=== PATIENT | male | born 1950 | race Caucasian/White ===

== ENCOUNTER 2020-07-27 06:58 | Emergency (ER) | payer MEDICARE, OTHER ==
--- NOTE | 2020-07-27 08:15 | ED ---
General Adult HPI - General Chief complaint: Fever Stated complaint: Fever Time Seen by Provider: 07/27/20 07:05 Source: RN notes reviewed, old records reviewed, Caregiver Mode of arrival: wheelchair Limitations: no limitations - History of Present Illness Initial comments: This is a 70-year-old male who had his baseline is unable to interact verbally o r any other manner. The whole history comes from the caregiver. Patient is brought in because he spiked a fever yesterday and his pulse ox went down to 88% today. Patient does have some exposure to people with COVID at the adult foster care facility that he lives. The patient had no vomiting patient had no diarrhea. According to the staff he has not been coughing. - Related Data Home Medications Medication Instructions Recorded Confirmed Aspirin EC [Ecotrin Low Dose] 81 mg PO DAILY@0700 07/27/20 07/27/20 Atorvastatin [Lipitor] 20 mg PO HS@2000 07/27/20 07/27/20 Cetirizine HCl [Zyrtec] 10 mg PO DAILY 07/27/20 07/27/20 LORazepam [Ativan] 1 mg PO BID PRN 07/27/20 07/27/20 LORazepam [Ativan] 1 mg PO TID@0700,1500,1900 07/27/20 07/27/20 Lactulose 10 gm PO DAILY@1500 07/27/20 07/27/20 Nasal Decongestant 2 spray EA NOSTRIL Q12H PRN 07/27/20 07/27/20 Secura Extra Cream 1 applic TOPICAL DAILY 07/27/20 07/27/20 diphenhydrAMINE [Benadryl] 25 mg PO HS PRN 07/27/20 07/27/20 Allergies Allergy/AdvReac Type Severity Reaction Status Date / Time No Known Allergies Allergy Verified 07/27/20 07:47 Review of Systems ROS Statement: Those systems with pertinent positive or pertinent negative responses have been documented in the HPI. ROS Other: All systems not noted in ROS Statement are negative. Past Medical History Additional Past Medical History / Comment(s): skin CA, mentally disabled History of Any Multi-Drug Resistant Organisms: None Reported Past Psychological History: No Psychological Hx Reported Smoking Status: Never smoker Past Alcohol Use History: None Reported Past Drug Use History: None Reported General Exam - General Exam Comments Initial Comments: GENERAL: Patient is well-developed and well-nourished. Patient is nontoxic and well- hydrated and is in no acute distress. ENT: Neck is soft and supple. No significant lymphadenopathy is noted. Oropharynx is clear. Moist mucous membranes. Neck has full range of motion without eliciting any pain. EYES: The sclera were anicteric and conjunctiva were pink and moist. Extraocular movements were intact and pupils were equal round and reactive to light. Eyelids were unremarkable. PULMONARY: Unlabored respirations. Good breath sounds bilaterally. Crackles bilateral bases more in the right than the left CARDIOVASCULAR: There is a regular rate and rhythm without any murmurs gallops or rubs. ABDOMEN: Soft and nontender with normal bowel sounds SKIN: Skin is clear with no lesions or rashes and otherwise unremarkable. NEUROLOGIC: Patient is alert and acting at his baseline according to staff MUSCULOSKELETAL: No lower extremity swelling or edema. No calf tenderness. LYMPHATICS: No significant lymphadenopathy is noted PSYCHIATRIC: Unable to assess secondary to his baseline condition Limitations: no limitations Course Vital Signs 07/27/20 07/27/20 07/27/20 07:05 08:00 08:30 Temperature 97.4 F L Pulse Rate 80 67 65 Respiratory 18 19 22 Rate Blood Pressure 111/67 120/74 117/72 O2 Sat by Pulse 94 L 92 L 92 L Oximetry 07/27/20 07/27/20 07/27/20 09:00 09:30 10:00 Temperature Pulse Rate 67 63 66 Respiratory 17 18 18 Rate Blood Pressure 119/77 125/75 118/74 O2 Sat by Pulse 92 L 93 L 95 Oximetry 07/27/20 10:41 Temperature 98.4 F Pulse Rate 66 Respiratory 18 Rate Blood Pressure 107/63 O2 Sat by Pulse 95 Oximetry Medical Decision Making - Medical Decision Making EKG shows normal sinus rhythm at 68 bpm ID interval is 170 QRS is 88 QT interval 382 QTC is 406. Patient's EKG shows no ST segment elevation or depression. Computed tomography scan of the chest shows no acute abnormality. Patient was 95% on room air while sleeping in bed. Patient was never in any respiratory distress. - Lab Data Result diagrams: 07/27/20 08:01 07/27/20 08:01 Lab Results 07/27/20 07/27/20 07/27/20 Range/Units 08:01 08:01 08:01 WBC 4.9 (3.8-10.6) k/uL RBC 4.35 (4.30-5.90) m/uL Hgb 13.7 (13.0-17.5) gm/dL Hct 39.9 (39.0-53.0) % MCV 91.8 (80.0-100.0) fL MCH 31.6 (25.0-35.0) pg MCHC 34.4 (31.0-37.0) g/dL RDW 12.0 (11.5-15.5) % Plt Count 119 L (150-450) k/uL MPV 9.5 Neutrophils % 75 % Lymphocytes % 10 % Monocytes % 9 % Eosinophils % 0 % Basophils % 3 % Neutrophils # 3.7 (1.3-7.7) k/uL Lymphocytes # 0.5 L (1.0-4.8) k/uL Monocytes # 0.4 (0-1.0) k/uL Eosinophils # 0.0 (0-0.7) k/uL Basophils # 0.2 (0-0.2) k/uL PT 10.9 (9.0-12.0) sec INR 1.1 (<1.2) APTT 26.0 (22.0-30.0) sec D-Dimer 1.55 H (<0.60) mg/L FEU Sodium 138 (137-145) mmol/L Potassium 4.2 (3.5-5.1) mmol/L Chloride 110 H (98-107) mmol/L Carbon Dioxide 22 (22-30) mmol/L Anion Gap 6 mmol/L BUN 15 (9-20) mg/dL Creatinine 0.69 (0.66-1.25) mg/dL Est GFR (CKD-EPI)AfAm >90 (>60 ml/min/1.73 sqM) Est GFR (CKD-EPI)NonAf >90 (>60 ml/min/1.73 sqM) Glucose 101 H (74-99) mg/dL Plasma Lactic Acid Kevon (0.7-2.0) mmol/L Calcium 8.8 (8.4-10.2) mg/dL Magnesium 2.0 (1.6-2.3) mg/dL Total Bilirubin 0.3 (0.2-1.3) mg/dL AST 44 (17-59) U/L ALT 30 (4-49) U/L Alkaline Phosphatase 70 (38-126) U/L Lactate Dehydrogenase 605 (313-618) U/L C-Reactive Protein <5.0 (<10.0) mg/L Total Protein 6.6 (6.3-8.2) g/dL Albumin 3.7 (3.5-5.0) g/dL Influenza Type A RNA (Not Detectd) Influenza Type B (PCR) (Not Detectd) 07/27/20 07/27/20 Range/Units 08:01 08:01 WBC (3.8-10.6) k/uL RBC (4.30-5.90) m/uL Hgb (13.0-17.5) gm/dL Hct (39.0-53.0) % MCV (80.0-100.0) fL MCH (25.0-35.0) pg MCHC (31.0-37.0) g/dL RDW (11.5-15.5) % Plt Count (150-450) k/uL MPV Neutrophils % % Lymphocytes % % Monocytes % % Eosinophils % % Basophils % % Neutrophils # (1.3-7.7) k/uL Lymphocytes # (1.0-4.8) k/uL Monocytes # (0-1.0) k/uL Eosinophils # (0-0.7) k/uL Basophils # (0-0.2) k/uL PT (9.0-12.0) sec INR (<1.2) APTT (22.0-30.0) sec D-Dimer (<0.60) mg/L FEU Sodium (137-145) mmol/L Potassium (3.5-5.1) mmol/L Chloride (98-107) mmol/L Carbon Dioxide (22-30) mmol/L Anion Gap mmol/L BUN (9-20) mg/dL Creatinine (0.66-1.25) mg/dL Est GFR (CKD-EPI)AfAm (>60 ml/min/1.73 sqM) Est GFR (CKD-EPI)NonAf (>60 ml/min/1.73 sqM) Glucose (74-99) mg/dL Plasma Lactic Acid Kevon 1.6 (0.7-2.0) mmol/L Calcium (8.4-10.2) mg/dL Magnesium (1.6-2.3) mg/dL Total Bilirubin (0.2-1.3) mg/dL AST (17-59) U/L ALT (4-49) U/L Alkaline Phosphatase (38-126) U/L Lactate Dehydrogenase (313-618) U/L C-Reactive Protein (<10.0) mg/L Total Protein (6.3-8.2) g/dL Albumin (3.5-5.0) g/dL Influenza Type A RNA Not Detected (Not Detectd) Influenza Type B (PCR) Not Detected (Not Detectd) Disposition Clinical Impression: Febrile illness, acute Disposition: HOME SELF-CARE Instructions (If sedation given, give patient instructions): Fever in Adults (ED) Is patient prescribed a controlled substance at d/c from ED?: No Referrals: Juan Vuong DO [Primary Care Provider] - 1-2 days Time of Disposition: 10:56
[2020-07-27 08:17] LABS: Basophils # (A) 0.2 k/uL (0-0.2); Basophils % (A) 3 %; Eosinophils % (A) 0 %; HCT 39.9 % (39.0-53.0); HGB 13.7 gm/dL (13.0-17.5); Lymphocytes # (A) 0.5 k/uL (1.0-4.8); Lymphocytes % (A) 10 %; MCH 31.6 pg (25.0-35.0); MCHC 34.4 g/dL (31.0-37.0); MCV 91.8 fL (80.0-100.0); Mean Platelet Volume 9.5; Monocytes # (A) 0.4 k/uL (0-1.0); Monocytes % (A) 9 %; Neutrophils # (A) 3.7 k/uL (1.3-7.7); Neutrophils % (A) 75 %; Platelet Count 119 k/uL (150-450); RBC 4.35 m/uL (4.30-5.90); WBC 4.9 k/uL (3.8-10.6)
--- NOTE | 2020-07-27 08:17 | XR ---
EXAMINATION TYPE: XR chest 1V portable DATE OF EXAM: 07/27/2020 Comparison: None Clinical History: 70-year-old male fever, Suspected COVID-19 pneumonia Findings: Low lung volumes and crowded vascular markings. Heart upper limits of normal in size. A subtle inters titial densities in the periphery of the lower lungs. No pleural effusion. Impression: Exam limited by low lung volumes and hypoventilatory changes. Subtle peripheral lower lung interstiti al densities could represent atelectasis or could reflect early atypical pneumonia. Follow-up recomme nded.
[2020-07-27 08:31] LABS: INR 1.1 (<1.2); Prothrombin Time 10.9 sec (9.0-12.0)
[2020-07-27 08:32] LABS: ALT 30 U/L (4-49); AST 44 U/L (17-59); African American GFR (CKD) >90 (>60 ml/min/1.73 sqM); Albumin 3.7 g/dL (3.5-5.0); Alkaline Phosphatase 70 U/L (38-126); Anion Gap 6 mmol/L; Blood Urea Nitrogen 15 mg/dL (9-20); C Reactive Protein <5.0 mg/L (<10.0); Calcium 8.8 mg/dL (8.4-10.2); Carbon Dioxide 22 mmol/L (22-30); Chloride 110 mmol/L (98-107); Glucose 101 mg/dL (74-99); LDH 605 U/L (313-618); Non-African American GFR(CKD) >90 (>60 ml/min/1.73 sqM); Potassium 4.2 mmol/L (3.5-5.1); Sodium 138 mmol/L (137-145); Total Bilirubin 0.3 mg/dL (0.2-1.3); Total Protein 6.6 g/dL (6.3-8.2)
[2020-07-27 08:44] LABS: D-Dimer 1.55 mg/L FEU (<0.60)
--- NOTE | 2020-07-27 10:14 | CT ---
EXAMINATION TYPE: CT chest angio for PE DATE OF EXAM: 07/27/2020 COMPARISON: HISTORY: Fever, COVID positiive CT DLP: 422.3 mGycm Automated exposure control for dose reduction was used. CONTRAST: CT Chest for pulmonary embolism performed with without and with IV Contrast, patient injected with 10 0 ml mL of Isovue 370. FINDINGS: There is motion, artifact on the exam LUNGS: The lungs are grossly clear, there is no concerning parenchymal mass or nodule identified. T here is no pleural effusion or pneumothorax seen. The tracheobronchial tree is patent. MEDIASTINUM: There is satisfactory enhancement of the pulmonary artery however there is limited opaci fication of segmental branches. There are no greater than 1 cm hilar or mediastinal lymph nodes. N o pericardial effusion is seen. AORTA: No additional significant abnormality is seen. OTHER: No additional significant abnormality is seen. IMPRESSION: Exam is somewhat limited to exclude peripheral pulmonary emboli. No central embolus is seen.
[2020-07-27 10:27] VITALS: PULSE 66
[2020-07-27 10:32] VITALS: RESP 18
[2020-07-27 10:42] VITALS: BP 107/63; TEMP 98.4
[2020-07-27 16:43] LABS: Ferritin 288.4 ng/mL (22.0-322.0)
== END 2020-07-27 11:09 | disposition home or self-care (01) ==
LOC: EEVIPCON 06:58 → EC 06:58
DX: R50.9 Fever, unspecified (principal); Z20.828 Contact with and (suspected) exposure to other viral communicable diseases; Z85.828 Personal history of other malignant neoplasm of skin; F79 Unspecified intellectual disabilities
CPT/HCPCS: 36415; 93005; 85379; 80053; 82728; 83605; 83615; 83735; 85025; 85610; 85730; 86140; 87040; 87502; 84145; 71045; 71275; 99284; 96365; U0003; J0696; Q9967

== ENCOUNTER 2020-07-28 12:38 | Observation (INO) | payer MEDICARE, OTHER ==
--- NOTE | 2020-07-28 14:30 | XR ---
EXAMINATION TYPE: XR chest 2V DATE OF EXAM: 07/28/2020 COMPARISON: 07/27/2020 HISTORY: Fever. Loss of appetite. TECHNIQUE: FINDINGS: There are some interstitial infiltrates and atelectasis at the lung bases. There is no hear t failure. Heart size is fairly normal. There is no pleural effusion. IMPRESSION: Bilateral basilar pulmonary interstitial infiltrates and atelectasis is the same or sligh tly worse than last exam yesterday.
[2020-07-28 15:05] LABS: ALT 32 U/L (4-49); AST 46 U/L (17-59); African American GFR (CKD) >90 (>60 ml/min/1.73 sqM); Alkaline Phosphatase 80 U/L (38-126); Anion Gap 6 mmol/L; Blood Urea Nitrogen 23 mg/dL (9-20); C Reactive Protein 5.8 mg/L (<10.0); Calcium 8.8 mg/dL (8.4-10.2); Carbon Dioxide 23 mmol/L (22-30); Chloride 111 mmol/L (98-107); Glucose 89 mg/dL (74-99); LDH 773 U/L (313-618); Magnesium 2.1 mg/dL (1.6-2.3); Non-African American GFR(CKD) >90 (>60 ml/min/1.73 sqM); Partial Thromboplastin Time 25.5 sec (22.0-30.0); Sodium 140 mmol/L (137-145); Total Bilirubin 0.4 mg/dL (0.2-1.3); Total Protein 7.1 g/dL (6.3-8.2)
[2020-07-28 15:07] LABS: HCT 42.7 % (39.0-53.0); HGB 14.3 gm/dL (13.0-17.5); MCH 30.8 pg (25.0-35.0); MCHC 33.4 g/dL (31.0-37.0); Mean Platelet Volume 9.6; Platelet Count 120 k/uL (150-450); RBC 4.63 m/uL (4.30-5.90); RDW 12.1 % (11.5-15.5); WBC 3.4 k/uL (3.8-10.6)
[2020-07-28 15:19] LABS: D-Dimer 1.32 mg/L FEU (<0.60)
[2020-07-28 15:26] LABS: Potassium 4.4 mmol/L (3.5-5.1)
[2020-07-28 15:41] LABS: Band Neutrophils % 1 %; Lymphocytes # (M) 1.77 k/uL (1.0-4.8); Neutrophils % (M) 41 %; Nucleated Red Blood Cells 0 /100 WBC (0-0); Total Cells Counted 100
--- NOTE | 2020-07-28 16:08 | ED ---
General Adult HPI - General Chief complaint: Recheck/Abnormal Lab/Rx Stated complaint: COVID+ Time Seen by Provider: 07/28/20 12:59 Source: patient Mode of arrival: ambulatory Limitations: no limitations - History of Present Illness Initial comments: 70-year-old male with history of developmental delay and nonverbal presenting to the emergency department with a chief complaint of covid-19 positive. Caregiver states the patient was here yesterday and had an in-depth laboratory workup and no significant findings. Patient continues to have a fever which they have been able to control with Tylenol. Caregiver states the patient has diarrhea and decreased appetite. She denies any cough at this moment. States the patient is otherwise having slight decrease in his appetite. She denies any vomiting. She states several of the president staying in a care home have tested positive. - Related Data Home Medications Medication Instructions Recorded Confirmed Aspirin EC [Ecotrin Low Dose] 81 mg PO DAILY@0700 07/27/20 07/27/20 Atorvastatin [Lipitor] 20 mg PO HS@2000 07/27/20 07/27/20 Cetirizine HCl [Zyrtec] 10 mg PO DAILY 07/27/20 07/27/20 LORazepam [Ativan] 1 mg PO BID PRN 07/27/20 07/27/20 LORazepam [Ativan] 1 mg PO TID@0700,1500,1900 07/27/20 07/27/20 Lactulose 10 gm PO DAILY@1500 07/27/20 07/27/20 Nasal Decongestant 2 spray EA NOSTRIL Q12H PRN 07/27/20 07/27/20 Secura Extra Cream 1 applic TOPICAL DAILY 07/27/20 07/27/20 diphenhydrAMINE [Benadryl] 25 mg PO HS PRN 07/27/20 07/27/20 Allergies Allergy/AdvReac Type Severity Reaction Status Date / Time No Known Allergies Allergy Verified 07/28/20 12:48 Review of Systems ROS Statement: Those systems with pertinent positive or pertinent negative responses have been documented in the HPI. ROS Other: All systems not noted in ROS Statement are negative. Past Medical History Additional Past Medical History / Comment(s): skin CA, mentally disabled History of Any Multi-Drug Resistant Organisms: None Reported Past Surgical History: No Surgical Hx Reported Past Psychological History: No Psychological Hx Reported Smoking Status: Never smoker Past Alcohol Use History: None Reported Past Drug Use History: None Reported General Exam Limitations: language barrier (Nonverbal) General appearance: alert, in no apparent distress Head exam: Present: atraumatic, normocephalic, normal inspection Eye exam: Present: normal appearance, PERRL ENT exam: Present: normal exam, normal oropharynx, mucous membranes moist, TM's normal bilaterally, normal external ear exam Neck exam: Present: normal inspection, full ROM. Absent: tenderness, meningismus, lymphadenopathy, thyromegaly Respiratory exam: Present: normal lung sounds bilaterally. Absent: respiratory distress, wheezes, rales, rhonchi, stridor, chest wall tenderness, accessory muscle use Cardiovascular Exam: Present: regular rate, normal rhythm, normal heart sounds. Absent: bradycardia, tachycardia, irregular rhythm, systolic murmur, diastolic murmur GI/Abdominal exam: Present: soft. Absent: distended, tenderness, guarding, rebound, rigid Extremities exam: Present: normal inspection, full ROM, normal capillary refill. Absent: tenderness, pedal edema, joint swelling Back exam: Present: normal inspection, full ROM. Absent: tenderness, CVA tenderness (R), CVA tenderness (L) Neurological exam: Present: alert Psychiatric exam: Present: normal affect, normal mood Skin exam: Present: warm, dry, intact, normal color Course Vital Signs 07/28/20 07/28/20 12:43 14:59 Temperature 97.0 F L Pulse Rate 72 Respiratory 20 28 H Rate Blood Pressure 133/84 O2 Sat by Pulse 95 Oximetry Medical Decision Making - Medical Decision Making 70-year-old male with a mental delay and nonverbal presents emergency Department with chief complaint of Covid positive. I spoke with the caregiver who was presents answering additional crutches. On physical examination, patient does have some dry mucous members. He otherwise does not appear to be in any respiratory distress. He is slightly tachypneic on reevaluation. Chest x-rays revealing bilateral infiltrates. Leukopenic at 3.9. Coags within normal pathak its. Elevated d-dimer at 1.25 likely secondary from Covid. CMP is unremarkable. Elevated LDH of 775. Patient is having decreased appetite and diarrhea. Patient will be admitted for further medical management. Case discussed with Dr. Cummings. Admitting physician is - Lab Data Result diagrams: 07/28/20 14:30 07/28/20 14:30 Lab Results 07/28/20 07/28/20 07/28/20 Range/Units 13:44 14:30 14:30 WBC 3.4 L (3.8-10.6) k/uL RBC 4.63 (4.30-5.90) m/uL Hgb 14.3 (13.0-17.5) gm/dL Hct 42.7 (39.0-53.0) % MCV 92.0 (80.0-100.0) fL MCH 30.8 (25.0-35.0) pg MCHC 33.4 (31.0-37.0) g/dL RDW 12.1 (11.5-15.5) % Plt Count 120 L (150-450) k/uL MPV 9.6 Neutrophils % (Manual) 41 % Band Neuts % (Manual) 1 % Lymphocytes % (Manual) 52 % Monocytes % (Manual) 6 % Neutrophils # (Manual) 1.40 (1.3-7.7) k/uL Lymphocytes # (Manual) 1.77 (1.0-4.8) k/uL Monocytes # (Manual) 0.20 (0-1.0) k/uL Nucleated RBCs 0 (0-0) /100 WBC Manual Slide Review Performed PT 10.0 (9.0-12.0) sec INR 1.0 (<1.2) APTT 25.5 (22.0-30.0) sec D-Dimer 1.32 H (<0.60) mg/L FEU Sodium (137-145) mmol/L Potassium (3.5-5.1) mmol/L Chloride (98-107) mmol/L Carbon Dioxide (22-30) mmol/L Anion Gap mmol/L BUN (9-20) mg/dL Creatinine (0.66-1.25) mg/dL Est GFR (CKD-EPI)AfAm (>60 ml/min/1.73 sqM) Est GFR (CKD-EPI)NonAf (>60 ml/min/1.73 sqM) Glucose (74-99) mg/dL Plasma Lactic Acid Kevon (0.7-2.0) mmol/L Calcium (8.4-10.2) mg/dL Magnesium (1.6-2.3) mg/dL Total Bilirubin (0.2-1.3) mg/dL AST (17-59) U/L ALT (4-49) U/L Alkaline Phosphatase (38-126) U/L Lactate Dehydrogenase (313-618) U/L C-Reactive Protein (<10.0) mg/L Total Protein (6.3-8.2) g/dL Albumin (3.5-5.0) g/dL Coronavirus (PCR) Detected A (Not Detectd) 07/28/20 07/28/20 Range/Units 14:30 14:30 WBC (3.8-10.6) k/uL RBC (4.30-5.90) m/uL Hgb (13.0-17.5) gm/dL Hct (39.0-53.0) % MCV (80.0-100.0) fL MCH (25.0-35.0) pg MCHC (31.0-37.0) g/dL RDW (11.5-15.5) % Plt Count (150-450) k/uL MPV Neutrophils % (Manual) % Band Neuts % (Manual) % Lymphocytes % (Manual) % Monocytes % (Manual) % Neutrophils # (Manual) (1.3-7.7) k/uL Lymphocytes # (Manual) (1.0-4.8) k/uL Monocytes # (Manual) (0-1.0) k/uL Nucleated RBCs (0-0) /100 WBC Manual Slide Review PT (9.0-12.0) sec INR (<1.2) APTT (22.0-30.0) sec D-Dimer (<0.60) mg/L FEU Sodium 140 (137-145) mmol/L Potassium 4.4 (3.5-5.1) mmol/L Chloride 111 H (98-107) mmol/L Carbon Dioxide 23 (22-30) mmol/L Anion Gap 6 mmol/L BUN 23 H (9-20) mg/dL Creatinine 0.74 (0.66-1.25) mg/dL Est GFR (CKD-EPI)AfAm >90 (>60 ml/min/1.73 sqM) Est GFR (CKD-EPI)NonAf >90 (>60 ml/min/1.73 sqM) Glucose 89 (74-99) mg/dL Plasma Lactic Acid Kevon 1.3 (0.7-2.0) mmol/L Calcium 8.8 (8.4-10.2) mg/dL Magnesium 2.1 (1.6-2.3) mg/dL Total Bilirubin 0.4 (0.2-1.3) mg/dL AST 46 (17-59) U/L ALT 32 (4-49) U/L Alkaline Phosphatase 80 (38-126) U/L Lactate Dehydrogenase 773 H (313-618) U/L C-Reactive Protein 5.8 (<10.0) mg/L Total Protein 7.1 (6.3-8.2) g/dL Albumin 4.0 (3.5-5.0) g/dL Coronavirus (PCR) (Not Detectd) Disposition Clinical Impression: Pneumonia due to COVID-19 virus, Decreased appetite, Diarrhea Disposition: ADMITTED IP TO THIS HOSP Condition: Fair Is patient prescribed a controlled substance at d/c from ED?: No Referrals: Juan Vuong DO [Primary Care Provider] - 1-2 days Time of Disposition: 17:43
[2020-07-28] MEDS ORDERED: ACETAMINOPHEN TAB 325 MG TAB PO PRN (16:53)
[2020-07-28] MEDS ORDERED: ONDANSETRON 4 MG/2 ML VIAL IVP PRN (16:53)
[2020-07-28] MEDS ORDERED: oxyCODONE-APAP 5-325MG 1 EACH TAB PO PRN (16:53)
[2020-07-28] MEDS ORDERED: LORazepam 2 MG/ML INJ IV PRN (16:53)
[2020-07-28] MEDS ORDERED: NALOXONE 0.4 MG/ML 1 ML VIAL IV PRN (16:53)
[2020-07-28] MEDS ORDERED: MORPHINE SULFATE 4 MG/ML SYRINGE IV PRN (16:53)
[2020-07-28] MEDS: SODIUM CHLORIDE 0.9% 1,000 ML IV SCH (17:58)
--- NOTE | 2020-07-28 18:32 | P.HPIM ---
History of Present Illness H&P Date: 07/28/20 Chief Complaint: diarrhea Patient is a 70-year-old male for history of developmental delay and nonverbal, skin cancer, and contractures who presented to the emergency department from his snf due to fevers, diarrhea, and hypoxia. He had known COVID-19 exposures at his snf. On arrival to the ER his vital signs within normal limits. He was slightly With a respiratory rate of 28. Laboratory analysis showed white blood cell count 3.4, platelets 120, d-dimer 1.32, chloride 111, BUN 23, LDH 773. Coronavirus rapid test was positive. Lactic acid was normal. He had been in the ER on 07/[address] of the chest which showed no central pulmonary embolism and grossly clear lungs. Chest x-ray 07/27 demonstrated by lateral bibasilar pulmonary interstitial infiltrates worsened from the day prior. Arrangements are made for admission for Covid 19 pneumonia and gastritis. He was started on dexamethasone and IV fluids. Patient seen and examined at bedside in the emergency department. 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 All information is gathered from extensive record review including emergency department visit 07/27/2020, and emergency rooms notes on 07/28 2020. I also spoke with the emergency room provider from 07/28 2020. Patient was seen in the ED on 07/27/2020 for low O2 sat at home and fevers. Came back in today for repeated fevers and diarrhea, with increased agitation. Review of Systems Unable to obtain review of systems as patient is nonverbal Past Medical History Additional Past Medical History / Comment(s): skin CA, mentally disabled History of Any Multi-Drug Resistant Organisms: None Reported Past Surgical History: No Surgical Hx Reported Past Psychological History: No Psychological Hx Reported Smoking Status: Never smoker Past Alcohol Use History: None Reported Past Drug Use History: None Reported Medications and Allergies Home Medications Medication Instructions Recorded Confirmed Type Aspirin EC [Ecotrin Low Dose] 81 mg PO DAILY@0700 07/27/20 07/28/20 History Atorvastatin [Lipitor] 20 mg PO HS@199907/27/20 07/28/20 History Cetirizine HCl [Zyrtec] 10 mg PO DAILY 07/27/20 07/28/20 History LORazepam [Ativan] 1 mg PO BID PRN 07/27/20 07/28/20 History LORazepam [Ativan] 1 mg PO TID@0700,1500,1900 07/27/20 07/28/20 History Lactulose 10 gm PO DAILY@1500 07/27/20 07/28/20 History Nasal Decongestant 2 spray EA NOSTRIL Q12H PRN 07/27/20 07/28/20 History Secura Extra Cream 1 applic TOPICAL DAILY 07/27/20 07/28/20 History diphenhydrAMINE [Benadryl] 25 mg PO HS PRN 07/27/20 07/28/20 History Allergies Allergy/AdvReac Type Severity Reaction Status Date / Time No Known Allergies Allergy Verified 07/28/20 17:45 Physical Exam Osteopathic Statement: *. No significant issues noted on an osteopathic structural exam other than those noted in the History and Physical/Consult. Vitals: Vital Signs Temp Pulse Resp BP Pulse Ox 07/28/20 14:59 28 H 07/28/20 12:43 97.0 F L 72 20 133/84 95 Intake and Output 07/28/20 07/28/20 07/28/20 06:59 14:59 22:59 Other: Weight 63.503 kg General: Ill-appearing, no acute distress, appears at stated age Derm: warm, dry Head: atraumatic, normocephalic, symmetric Eyes: EOMI, no lid lag, anicteric sclera, pupils equal round reactive to light ENT: Nose and ears atraumatic, no thrush, no pharyngeal erythema Neck: No thyromegaly, no cervical lymphadenopathy, trachea midline, supple Mouth: no lip lesion, mucus membranes dry Cardiovascular: S1S2 reg, no murmur, positive posterior tibial pulse bilateral, no edema, capillary refill less than 2 seconds Lungs: Decreased breath sounds bilateral, no ronchi, no rales, no wheeze, no accessory muscle use Abdominal: Distended and firm, NTTP , no appreciable organomegaly, Hypoactive bowel sounds Ext: + gross muscle atrophy, muscle strength muscle strength 5 out of 5 in all 4 extremities, no contractures+ B/l LE flexion contractures, Neuro: light touch intact all 4 extremities, No tremors Psych: Awake, non verbal, doesn't follow commands, appears anxious Results CBC & Chem 7: 07/28/20 14:30 07/28/20 14:30 Labs: Abnormal Lab Results - Last 24 Hours (Table) 07/28/20 07/28/20 07/28/20 Range/Units 13:44 14:30 14:30 WBC 3.4 L (3.8-10.6) k/uL Plt Count 120 L (150-450) k/uL D-Dimer 1.32 H (<0.60) mg/L FEU Chloride (98-107) mmol/L BUN (9-20) mg/dL Lactate Dehydrogenase (313-618) U/L Coronavirus (PCR) Detected A (Not Detectd) 07/28/20 Range/Units 14:30 WBC (3.8-10.6) k/uL Plt Count (150-450) k/uL D-Dimer (<0.60) mg/L FEU Chloride 111 H (98-107) mmol/L BUN 23 H (9-20) mg/dL Lactate Dehydrogenase 773 H (313-618) U/L Coronavirus (PCR) (Not Detectd) Assessment and Plan Assessment: COVID-19 Gastroenteritis - bowel appears dilated on CXR - CT abd and pelvis - IVF, clear liquids - zinc, vit C, VIt D, Pepecid, melatonin - Elevated d-dimer due to COVID and TA 07/27 negative - follow inflammatory markers Dehydration - IVF - recheck in AM Thrombocytopenia - likely reactive - follow CBC HLD - statin Cognitive impairment - Supportive care The patient is admitted with an anticipated greater than 2 midnight stay for evaluation of COVID-19 gastritis Surrogate decision-maker: Chelsea Sales legal guardian DVT prophylaxis: Lovenox Discussed with: nursing, ED physician, ED PA Anticipated discharge date: 2-[address]: A total of 65 minutes was spent on the care of this complex patient more than 50% of the time was spent in counseling and care coordination.
[2020-07-28] MEDS ORDERED: ATORVASTATIN 20 MG TAB PO SCH (20:00)
--- NOTE | 2020-07-28 20:14 | CT ---
EXAMINATION TYPE: CT abdomen pelvis wo con DATE OF EXAM: 07/28/2020 COMPARISON: None HISTORY: Bowel tympanic, megacolon, covid 19 + Abdominal pain possible megacolon CT DLP: 635.4 mGycm Automated exposure control for dose reduction was used. Images were obtained from the diaphragm to the floor the pelvis without contrast. There is some mild atelectasis at the right lung base. Heart size is normal. There is no pericardial effusion. Liver shows no focal defect. Bile ducts are not dilated. Spleen is intact. The stomach is intact. The re is no evidence of pancreatic mass. Gallbladder is contracted with small gallstones. There is no adrenal mass. Kidneys have normal size. There is no hydronephrosis. There is 2 cm cortica l cyst posterior right kidney. There is 4.5 cm cortical cyst lateral left kidney. There is 2 cm corti cachorro cyst lower pole right kidney. There is no evidence of solid renal mass. Ureters are not dilated. Bladder distends smoothly. There is no free fluid in the pelvis. There is mild gaseous distention of large and small bowel loops without disproportionate enlargement of any one loop. Fecal pattern is fa irly normal. Appendix is not definitely seen. There is no sign of thickened appendix. There is no smita dence of free air. There is no ascites. There is right hip nailing noted. The bony pelvis is intact. There is a second-degree L4-5 spondyloli sthesis with right side L4 spondylolysis. I see no acute fracture. IMPRESSION: Intestinal gas pattern suggestive of some mild ileus. I do not see evidence for mechanical bowel obst ruction. Mild linear infiltrate and atelectasis at the right lung base. L4-5 spondylolisthesis.
[2020-07-28] MEDS ORDERED: MELATONIN 5 MG TABLET PO SCH (21:00)
[2020-07-28] MEDS ORDERED: FAMOTIDINE 20 MG TAB PO SCH (21:00)
[2020-07-28] MEDS ORDERED: ASCORBIC ACID 500 MG TAB PO SCH (21:00)
[2020-07-28] MEDS ORDERED: ZINC SULFATE 220 MG CAP PO SCH (21:00)
[2020-07-28] MEDS ORDERED: CHOLECALCIFEROL 1,000 UNIT TAB PO SCH (21:00)
[2020-07-28] MEDS: LORazepam 1 MG TAB PO SCH (23:21)
[2020-07-29 06:04] LABS: Basophils % (A) 1 %; Eosinophils % (A) 1 %; HCT 40.4 % (39.0-53.0); HGB 13.4 gm/dL (13.0-17.5); Lymphocytes # (A) 1.2 k/uL (1.0-4.8); Lymphocytes % (A) 32 %; MCH 30.7 pg (25.0-35.0); MCHC 33.1 g/dL (31.0-37.0); MCV 92.8 fL (80.0-100.0); Mean Platelet Volume 10.1; Monocytes # (A) 0.2 k/uL (0-1.0); Monocytes % (A) 6 %; Neutrophils % (A) 55 %; Platelet Count 111 k/uL (150-450); RBC 4.35 m/uL (4.30-5.90); RDW 12.1 % (11.5-15.5); WBC 3.6 k/uL (3.8-10.6)
[2020-07-29] MEDS: SODIUM CHLORIDE 0.9% 1,000 ML IV SCH (07:54)
[2020-07-29] MEDS: ASPIRIN 81 MG PO SCH ×2 (07:55→08:01)
[2020-07-29] MEDS: LORazepam 1 MG TAB PO SCH (08:01)
[2020-07-29 08:04] VITALS: RESP 18
[2020-07-29] MEDS ORDERED: ENOXAPARIN 40 MG/0.4 ML SYRINGE SQ SCH (09:00)
[2020-07-29] MEDS ORDERED: LORATADINE 10 MG TAB PO SCH (09:00)
[2020-07-29 10:07] LABS: ALT 32 U/L (10-49); AST 34 U/L (14-35); African American GFR (CKD) 109.3 (60.0-200.0); Albumin/Globulin Ratio 1.73 (1.60-3.17); Alkaline Phosphatase 82 U/L (41-126); BUN/Creat Ratio 27.14 Ratio (12.00-20.00); C Reactive Protein <0.4 mg/dL (0.0-0.8); Calcium 8.3 mg/dL (8.7-10.3); Carbon Dioxide 22.3 mmol/L (21.6-31.8); Chloride 109 mmol/L (96-109); Globulin 2.2 g/dL (1.6-3.3); Glucose 87 mg/dL (70-110); Magnesium 1.9 mg/dL (1.5-2.4); Non-African American GFR(CKD) 94.3 (60.0-200.0); Potassium 4.1 mmol/L (3.5-5.5); Sodium 141 mmol/L (135-145); Total Bilirubin 0.4 mg/dL (0.3-1.2)
[2020-07-29 10:11] LABS: LDH 222 U/L (120-246)
[2020-07-29 10:20] LABS: Ferritin 422.2 ng/mL (22.0-322.0)
--- NOTE | 2020-07-29 11:32 | P.DS ---
Providers Date of admission: 07/28/20 16:37 Expected date of discharge: 07/29/20 Attending physician: Alexa Jimenez DO Primary care physician: Juan Vuong [facility] Course: Discharge Diagnosis: COVID-19 Viral gastroenteritis Ileus Dehydration Thrombocytopenia HLD Cognitive impairment Hospital Course: Patient is a 70-year-old male for history of developmental delay and nonverbal, skin cancer, and contractures who presented [facility] the emergency department [facility] due to fevers, diarrhea, and hypoxia. He had known COVID-19 exposures at his prison. On arrival to the ER his vital signs within normal limits. He was slightly With a respiratory rate of 28. Laboratory analysis showed white blood cell count 3.4, platelets 120, d-dimer 1.32, chloride 111, BUN 23, LDH 773. Coronavirus rapid test was positive. Lactic acid was normal. He had been in the ER on 07/[address] of the chest which showed no central pulmonary embolism and grossly clear lungs. Chest x-ray 07/27 demonstrated by lateral bibasilar pulmonary interstitial infiltrates worsened from the day prior. Arrangements are made for admission for Covid 19 pneumonia and ga stritis. He was started on dexamethasone and IV fluids. Dexamethasone was discontinued as the patient was not hypoxic at less than 94% on room air. Studies from the RECOVERY trial shows that people who are not hypoxic to worse with dexamethasone. This will be avoided. Was placed on vitamin C, vitamin D, and zinc. His diarrhea resolved. He was not cooperating with taking pills or doing on the hospital. The sister in group and felt as though he would do better at home. He was determined stable for discharge. He was noted to have an ileus on computed tomography scan. He will maintain on a full liquid diet for the next 3 days and then advance if he is having normal bowel movements. He'll have home health care established. He'll resume his prior medications. Patient seen and examined at bedside. Nonverbal, appears comfortable area Vital signs reviewed and stable. General: non toxic, no distress, appears at stated age Cardiovascular: S1S2 reg, no murmur, positive posterior tibial pulse bilateral, no edema, capillary refill less than 2 seconds Lungs: Decreased breath sounds bilateral, no ronchi, no rales, no wheeze, no accessory muscle use Abdominal: Distended and firm, NTTP , no appreciable organomegaly, Hypoactive bowel sounds Ext: + gross muscle atrophy, movign all 4 extremities independently, + B/l LE flexion contractures, Psych: Awake, non verbal, doesn't follow commands, appears anxious A total of 25 minutes of time were spent preparing this complex discharge summary . Patient Condition at Discharge: Fair Plan - Discharge Summary New Discharge Prescriptions: New Melatonin 10 mg PO HS #30 tablet Zinc Sulfate [Orazinc] 220 mg PO DAILY #15 cap Ascorbic Acid [Vitamin C] 1,000 mg PO DAILY 15 Days #15 tab Cholecalciferol [Vitamin D3 (25 Mcg = 1000 Iu)] 1,000 unit PO DAILY #15 tab Continue Cetirizine HCl [Zyrtec] 10 mg PO DAILY Nasal Decongestant 2 spray EA NOSTRIL Q12H PRN PRN Reason: Congestion Secura Extra Cream 1 applic TOPICAL DAILY LORazepam [Ativan] 1 mg PO BID PRN PRN Reason: Anxiety Aspirin EC [Ecotrin Low Dose] 81 mg PO DAILY@0700 diphenhydrAMINE [Benadryl] 25 mg PO HS PRN PRN Reason: Insomnia Atorvastatin [Lipitor] 20 mg PO HS@1999 Lactulose 10 gm PO DAILY@1500 LORazepam [Ativan] 1 mg PO TID@0700,1500,1900 Discharge Medication List Aspirin EC [Ecotrin Low Dose] 81 mg PO DAILY@0700 07/27/20 [History] Atorvastatin [Lipitor] 20 mg PO HS@199907/27/20 [History] Cetirizine HCl [Zyrtec] 10 mg PO DAILY 07/27/20 [History] LORazepam [Ativan] 1 mg PO BID PRN 07/27/20 [History] LORazepam [Ativan] 1 mg PO TID@0700,1500,1900 07/27/20 [History] Lactulose 10 gm PO DAILY@1500 07/27/20 [History] Nasal Decongestant 2 spray EA NOSTRIL Q12H PRN 07/27/20 [History] Secura Extra Cream 1 applic TOPICAL DAILY 07/27/20 [History] diphenhydrAMINE [Benadryl] 25 mg PO HS PRN 07/27/20 [History] Ascorbic Acid [Vitamin C] 1,000 mg PO DAILY 15 Days #15 tab 07/29/20 [Rx] Cholecalciferol [Vitamin D3 (25 Mcg = 1000 Iu)] 1,000 unit PO DAILY #15 tab 07/29/20 [Rx] Melatonin 10 mg PO HS #30 tablet 07/29/20 [Rx] Zinc Sulfate [Orazinc] 220 mg PO DAILY #15 cap 07/29/20 [Rx] Follow up Appointment(s)/Referral(s): Juan Vuong DO [Primary Care Provider] - 1-2 days Patient Instructions/Handouts: Full Liquid Diet (DC) Activity/Diet/Wound Care/Special Instructions: Activity: as tolerated Diet: full liquid for 3 days and then advance to regular if having bowel movements Discharge Disposition: HOME SELF-CARE
[2020-07-29 13:23] VITALS: BP 131/72; PULSE 93; TEMP 98.2
== END 2020-07-29 13:20 | disposition home or self-care (01) ==
LOC: EC 12:38 → 4SSUR 16:37
PROVIDERS: ADMIT Internal Medicine; ATTEND Internal Medicine
DX: U07.1 COVID-19 (principal); J18.9 Pneumonia, unspecified organism; A08.4 Viral intestinal infection, unspecified; R09.02 Hypoxemia; E86.0 Dehydration; D69.6 Thrombocytopenia, unspecified; K56.7 Ileus, unspecified; K29.70 Gastritis, unspecified, without bleeding; Z85.828 Personal history of other malignant neoplasm of skin; F79 Unspecified intellectual disabilities; R06.82 Tachypnea, not elsewhere classified; D72.819 Decreased white blood cell count, unspecified; R74.02 Elevation of levels of lactic acid dehydrogenase [LDH]; Z79.899 Other long term (current) drug therapy; Z79.82 Long term (current) use of aspirin; E78.5 Hyperlipidemia, unspecified
CPT/HCPCS: 99285; 36415; 85379 ×2; 80053 ×2; 82728 ×2; 83605; 83615 ×2; 83735 ×2; 85025 ×2; 85610; 85730; 86140 ×2; 87040; 87077; 87186; 84145; 87635; 71046; 74176; G0378 ×2

== ENCOUNTER 2021-04-22 00:26 | Inpatient (IN) | payer MEDICARE, OTHER ==
[2021-04-22] MEDS ORDERED: SODIUM CHLORIDE 0.9% 1,000 ML IV STA ×2 (00:53→02:42)
[2021-04-22] MEDS ORDERED: IBUPROFEN 600 MG TAB PO STA (00:53)
[2021-04-22] MEDS ORDERED: ACETAMINOPHEN TAB 500 MG TAB PO STA (00:53)
--- NOTE | 2021-04-22 00:54 | ED ---
Fever HPI - General Chief Complaint: Fever Stated Complaint: Fever Time Seen by Provider: 04/22/21 00:35 Source: patient, RN notes reviewed, old records reviewed, Caregiver Mode of arrival: ambulatory Limitations: no limitations - History of Present Illness MD Complaint: fever, weakness -: unknown Temperature Source: subjective Context: multiple patients with similar symptoms Associated Symptoms: denies other symptoms Treatments Prior to Arrival: none - Related Data Home Medications Medication Instructions Recorded Confirmed Aspirin EC [Ecotrin Low Dose] 81 mg PO DAILY@0700 07/27/20 07/28/20 Atorvastatin [Lipitor] 20 mg PO HS@199907/27/20 07/28/20 Cetirizine HCl [Zyrtec] 10 mg PO DAILY 07/27/20 07/28/20 LORazepam [Ativan] 1 mg PO BID PRN 07/27/20 07/28/20 LORazepam [Ativan] 1 mg PO TID@0700,1500,1900 07/27/20 07/28/20 Lactulose 10 gm PO DAILY@1500 07/27/20 07/28/20 Nasal Decongestant 2 spray EA NOSTRIL Q12H PRN 07/27/20 07/28/20 Secura Extra Cream 1 applic TOPICAL DAILY 07/27/20 07/28/20 diphenhydrAMINE [Benadryl] 25 mg PO HS PRN 07/27/20 07/28/20 Previous Rx's Medication Instructions Recorded Ascorbic Acid [Vitamin C] 1,000 mg PO DAILY 15 Days #15 tab 07/29/20 Cholecalciferol [Vitamin D3 (25 1,000 unit PO DAILY #15 tab 07/29/20 Mcg = 1000 Iu)] Melatonin 10 mg PO HS #30 tablet 07/29/20 Zinc Sulfate [Orazinc] 220 mg PO DAILY #15 cap 07/29/20 Allergies Allergy/AdvReac Type Severity Reaction Status Date / Time No Known Allergies Allergy Verified 04/22/21 00:39 Review of Systems ROS Statement: Those systems with pertinent positive or pertinent negative responses have been documented in the HPI. ROS Other: All systems not noted in ROS Statement are negative. Past Medical History Additional Past Medical History / Comment(s): skin CA, mentally disabled History of Any Multi-Drug Resistant Organisms: None Reported Past Surgical History: No Surgical Hx Reported Past Psychological History: No Psychological Hx Reported Smoking Status: Never smoker Past Alcohol Use History: None Reported Past Drug Use History: None Reported General Exam Limitations: physical limitation General appearance: alert, in no apparent distress Head exam: Present: atraumatic, normocephalic, normal inspection Eye exam: Present: normal appearance, PERRL, EOMI. Absent: scleral icterus, conjunctival injection, periorbital swelling ENT exam: Present: normal exam, mucous membranes moist Neck exam: Present: normal inspection. Absent: tenderness, meningismus, lymphadenopathy Respiratory exam: Present: normal lung sounds bilaterally. Absent: respiratory distress, wheezes, rales, rhonchi, stridor Cardiovascular Exam: Present: regular rate, normal rhythm, normal heart sounds. Absent: systolic murmur, diastolic murmur, rubs, gallop, clicks GI/Abdominal exam: Present: soft, normal bowel sounds. Absent: distended, tenderness, guarding, rebound, rigid Extremities exam: Present: normal inspection, full ROM, normal capillary refill. Absent: tenderness, pedal edema, joint swelling, calf tenderness Back exam: Present: normal inspection Neurological exam: Present: alert, oriented X3, CN II-XII intact Psychiatric exam: Present: normal affect, normal mood Skin exam: Present: warm, dry, intact, normal color. Absent: rash Course Vital Signs 04/22/21 04/22/21 00:31 01:50 Temperature 102.6 F H 99.5 F Pulse Rate 74 Respiratory 21 Rate Blood Pressure 156/80 O2 Sat by Pulse 94 L Oximetry - Reevaluation(s) Reevaluation #1: 04/22/21 00:44 Medical record is reviewed Reevaluation #2: 04/22/21 01:43 fever and UTI at 04/22/21 02:44 Staffing is informed of findings here in the emergency department patient's plan Medical Decision Making - Lab Data Result diagrams: 04/22/21 01:25 Lab Results 04/22/21 04/22/21 04/22/21 Range/Units 01:25 01:25 01:25 WBC 15.7 H (3.8-10.6) k/uL RBC 4.72 (4.30-5.90) m/uL Hgb 14.9 (13.0-17.5) gm/dL Hct 44.2 (39.0-53.0) % MCV 93.7 (80.0-100.0) fL MCH 31.5 (25.0-35.0) pg MCHC 33.6 (31.0-37.0) g/dL RDW 12.3 (11.5-15.5) % Plt Count 122 L (150-450) k/uL MPV 10.1 Neutrophils % 91 % Lymphocytes % 3 % Monocytes % 5 % Eosinophils % 0 % Basophils % 0 % Neutrophils # 14.3 H (1.3-7.7) k/uL Lymphocytes # 0.5 L (1.0-4.8) k/uL Monocytes # 0.7 (0-1.0) k/uL Eosinophils # 0.1 (0-0.7) k/uL Basophils # 0.0 (0-0.2) k/uL Troponin I <0.012 (0.000-0.034) ng/mL Urine Color Yellow Urine Appearance Cloudy (Clear) Urine pH 5.5 (5.0-8.0) Ur Specific [place] 1.024 (1.001-1.035) Urine Protein Trace H (Negative) Urine Glucose (UA) Negative (Negative) Urine Ketones 2+ H (Negative) Urine Blood Negative (Negative) Urine Nitrite Positive (Negative) Urine Bilirubin Negative (Negative) Urine Urobilinogen <2.0 (<2.0) mg/dL Ur Leukocyte Esterase Large H (Negative) Urine RBC 3 (0-5) /hpf Urine WBC 174 H (0-5) /hpf Urine Bacteria Rare H (None) /hpf Urine Mucus Few H (None) /hpf - EKG Data -: EKG Interpreted by Me (EKG is sinus tachycardia 101 CO 150 QRS 80 QTC 407) Critical Care Time Critical Care Time: Yes Total Critical Care Time: 31 Disposition Clinical Impression: Fever, UTI (urinary tract infection) Disposition: ADMITTED IP TO THIS HOSP Condition: Fair Is patient prescribed a controlled substance at d/c from ED?: No Referrals: Madan Mancuso MD [Primary Care Provider] - 1-2 days
[2021-04-22 01:49] LABS: Basophils % (A) 0 %; Eosinophils # (A) 0.1 k/uL (0-0.7); Eosinophils % (A) 0 %; HCT 44.2 % (39.0-53.0); HGB 14.9 gm/dL (13.0-17.5); Lymphocytes # (A) 0.5 k/uL (1.0-4.8); Lymphocytes % (A) 3 %; MCH 31.5 pg (25.0-35.0); MCHC 33.6 g/dL (31.0-37.0); MCV 93.7 fL (80.0-100.0); Mean Platelet Volume 10.1; Monocytes # (A) 0.7 k/uL (0-1.0); Monocytes % (A) 5 %; Neutrophils # (A) 14.3 k/uL (1.3-7.7); Neutrophils % (A) 91 %; Platelet Count 122 k/uL (150-450); RBC 4.72 m/uL (4.30-5.90); RDW 12.3 % (11.5-15.5); WBC 15.7 k/uL (3.8-10.6)
--- NOTE | 2021-04-22 02:00 | XR ---
EXAMINATION TYPE: XR chest 2V DATE OF EXAM: 04/22/2021 COMPARISON: 07/28/2020 HISTORY: Weakness TECHNIQUE: 2 views FINDINGS: There is some interstitial infiltrate and atelectasis at both lung bases. There is no heart failure. Heart size is normal. There are chest leads. The bony thorax is intact. IMPRESSION: Basilar pulmonary interstitial infiltrates and atelectasis that is improved compared to l ast exam.
[2021-04-22 02:12] LABS: Appearance,Urine Cloudy (Clear); Bacteria,Urine Rare /hpf; Bilirubin,Urine Negative (Negative); Blood,Urine Negative (Negative); Color,Urine Yellow; Glucose,Urine (UA) Negative (Negative); Ketones,Urine 2+ (Negative); Leukocyte Esterase,Urine Large (Negative); Mucus,Urine Few /hpf; Nitrite,Urine Positive (Negative); PH, Urine 5.5 (5.0-8.0); Protein,Urine Trace (Negative); RBC,Urine 3 /hpf (0-5); Specific Gravity,Urine 1.024 (1.001-1.035); Urobilinogen,Urine <2.0 mg/dL (<2.0); WBC,Urine 174 /hpf (0-5)
[2021-04-22] MEDS ORDERED: MORPHINE SULFATE 4 MG/ML SYRINGE IV PRN (02:41)
[2021-04-22] MEDS ORDERED: NALOXONE 0.4 MG/ML 1 ML VIAL IV PRN (02:41)
[2021-04-22] MEDS ORDERED: SODIUM CHLORIDE 0.9% 500 ML 500 ML IV STA (02:42)
[2021-04-22] MEDS: SODIUM CHLORIDE 0.9% 1,000 ML IV SCH ×3 (03:00→16:31)
[2021-04-22 03:08] LABS: Glucose 131 mg/dL (74-99); Total Protein 6.9 g/dL (6.3-8.2)
[2021-04-22 03:09] LABS: ALT 24 U/L (4-49); AST 31 U/L (17-59); African American GFR (CKD) >90 (>60 ml/min/1.73 sqM); Albumin 4.1 g/dL (3.5-5.0); Alkaline Phosphatase 102 U/L (38-126); Anion Gap 13 mmol/L; Blood Urea Nitrogen 18 mg/dL (9-20); Calcium 9.1 mg/dL (8.4-10.2); Carbon Dioxide 17 mmol/L (22-30); Chloride 109 mmol/L (98-107); Creatine Kinase 126 U/L (55-170); Lipase 136 U/L (23-300); Magnesium 1.7 mg/dL (1.6-2.3); Non-African American GFR(CKD) 89 (>60 ml/min/1.73 sqM); Phosphorus 1.9 mg/dL (2.5-4.5); Potassium 3.8 mmol/L (3.5-5.1); Sodium 139 mmol/L (137-145); Total Bilirubin 1.1 mg/dL (0.2-1.3)
[2021-04-22 03:29] LABS: Partial Thromboplastin Time 22.4 sec (22.0-30.0); Prothrombin Time 11.1 sec (9.0-12.0)
[2021-04-22] MEDS ORDERED: LORazepam 1 MG TAB PO PRN (11:07)
[2021-04-22] MEDS: [UNRECOGNIZED DRUG - OTHER] PO SCH ×3 (11:22→21:37)
[2021-04-22] MEDS: ASPIRIN 81 MG PO SCH (12:06)
[2021-04-22] MEDS ORDERED: MAG HYDROX/AL HYDROX/SIMETH 30 ML CUP PO PRN (13:39)
[2021-04-22] MEDS ORDERED: ONDANSETRON 4 MG/2 ML VIAL IVP PRN (13:39)
[2021-04-22] MEDS ORDERED: CALCIUM CARBONATE 500 MG CHEWABLE PO PRN (13:39)
[2021-04-22] MEDS ORDERED: MAGNESIUM HYDROXIDE 2,400 MG/10 ML CUP PO PRN (13:39)
--- NOTE | 2021-04-22 13:47 | P.HPIM ---
History of Present Illness H&P Date: 04/22/21 Chief Complaint: Fever History of presenting complaint: This is a 70-year-old patient who follows with visiting physicians. At the baseline patient is nonverbal, and can make hand gestures altered rapid arm. He can ablate with a gait belt and assistance. His diet is ground diet nectar thick liquids. He was noticed at the space of residence to have a fever and was brought in. Patient's found over UTI. Started on IV ceftriaxone. Patient sitting up out of bed. Awake. I'll answering questions. Appears to be comfortable. Patient nonverbal, not able to give any history. Review of systems, cannot be done as patient nonverbal Past medical history to include: Chronic dysphagia. Mental retardation. Hyperlipidemia, Social history: No history of smoking or alcohol Physical examination: VITAL SIGNS: 102.6, 74, 21, 156/80, 94% room air GENERAL: BMI 22.1, sitting on bed, awake, comfortable. EYES: Pupils equal. Conjunctiva normal. HEENT: External appearance of nose and ears normal, oral cavity grossly normal. NECK: JVD not raised; masses not palpable. HEART: First and second heart sounds are normal; no edema. LUNGS: Respiratory rate normal; clear to auscultation. ABDOMEN: Soft, nontender, liver spleen not palpable, no masses palpable. PSYCH: Cannot assess as patient nonverball. NEUROLOGICAL: Doesn't answer questions. Can move his limbs. Walks with some assistance.. LYMPHATICS: No lymph nodes palpable in the axilla and neck INVESTIGATIONS, reviewed in the clinical context: WBC 15.7 hemoglobin 14.9 platelets 122 potassium 3.8 bicarb 17 creatinine 0.81 lactic acid 2.7 and repeat 1.4 UA positive for ketones, leukoesterase, WBC, bacteria EKG tracing personally reviewed by me-poor baseline, sinus tachycardia Chest x-ray film personally reviewed by me-infiltrates in the lower half Assessment and plan: -Bilateral pneumonia, suspect gram-negative organism causing sepsis IV ceftriaxone -Acute UTI with cystitis IV ceftriaxone. -Sepsis from pneumonia IV fluids -Thrombocytopenia likely from sepsis Follow CBC -Hyperlipidemia Lipitor -Chronic mental retardation -Chronic gait dysfunction, patient needs some assistance in walking Fall precautions Patient started IV ceftriaxone. IV fluids. Home medications resumed. Repeat labs. Past Medical History Additional Past Medical History / Comment(s): skin CA, mentally disabled History of Any Multi-Drug Resistant Organisms: None Reported Past Surgical History: No Surgical Hx Reported Past Psychological History: No Psychological Hx Reported Smoking Status: Never smoker Past Alcohol Use History: None Reported Past Drug Use History: None Reported Medications and Allergies Home Medications Medication Instructions Recorded Confirmed Type Aspirin EC [Ecotrin Low Dose] 81 mg PO DAILY@0700 07/27/20 04/22/21 History Atorvastatin [Lipitor] 20 mg PO HS@199907/27/20 04/22/21 History Cetirizine HCl [Zyrtec] 10 mg PO DAILY@0700 07/27/20 04/22/21 History LORazepam [Ativan] 1 mg PO BID PRN 07/27/20 04/22/21 History LORazepam [Ativan] 1 mg PO TID@0700,1600,199907/27/20 04/22/21 History Lactulose 10 gm PO DAILY@1600 07/27/20 04/22/21 History Nasal Decongestant 2 spray EA NOSTRIL Q12H PRN 07/27/20 04/22/21 History Secura Extra Cream 1 applic TOPICAL DAILY PRN 07/27/20 04/22/21 History diphenhydrAMINE [Benadryl] 25 mg PO HS PRN 07/27/20 04/22/21 History Acyclovir 5% Oint [Zovirax Oint] 1 applic TOPICAL 5XD PRN 04/22/21 04/22/21 History Simply Thick 1 dose PO QID@07,12,16,20 04/22/21 04/22/21 History Allergies Allergy/AdvReac Type Severity Reaction Status Date / Time No Known Allergies Allergy Verified 04/22/21 09:14 Physical Exam Vitals: Vital Signs Temp Pulse Resp BP Pulse Ox 04/22/21 06:42 98.2 F 71 16 105/54 95 04/22/21 03:19 86 16 118/74 96 04/22/21 01:50 99.5 F 04/22/21 00:31 102.6 F H 74 21 156/80 94 L Intake and Output 04/21/21 04/22/21 04/22/21 22:59 06:59 14:59 Other: Weight 62.142 kg Results CBC & Chem 7: 04/22/21 01:25 04/22/21 02:28 Labs: Abnormal Lab Results - Last 24 Hours (Table) 04/22/21 04/22/21 04/22/21 Range/Units 01:25 01:25 02:28 WBC 15.7 H (3.8-10.6) k/uL Plt Count 122 L (150-450) k/uL Neutrophils # 14.3 H (1.3-7.7) k/uL Lymphocytes # 0.5 L (1.0-4.8) k/uL Chloride 109 H (98-107) mmol/L Carbon Dioxide 17 L (22-30) mmol/L Glucose 131 H (74-99) mg/dL Plasma Lactic Acid [place] (0.7-2.0) mmol/L Phosphorus 1.9 L (2.5-4.5) mg/dL Urine Protein Trace H (Negative) Urine Ketones 2+ H (Negative) Ur Leukocyte Esterase Large H (Negative) Urine WBC 174 H (0-5) /hpf Urine Bacteria Rare H (None) /hpf Urine Mucus Few H (None) /hpf 04/22/21 Range/Units 02:28 WBC (3.8-10.6) k/uL Plt Count (150-450) k/uL Neutrophils # (1.3-7.7) k/uL Lymphocytes # (1.0-4.8) k/uL Chloride (98-107) mmol/L Carbon Dioxide (22-30) mmol/L Glucose (74-99) mg/dL Plasma Lactic Acid [place] 2.7 H* (0.7-2.0) mmol/L Phosphorus (2.5-4.5) mg/dL Urine Protein (Negative) Urine Ketones (Negative) Ur Leukocyte Esterase (Negative) Urine WBC (0-5) /hpf Urine Bacteria (None) /hpf Urine Mucus (None) /hpf Microbiology - Last 24 Hours (Table) 04/22/21 01:25 Urine Culture - Preliminary Urine,Voided
[2021-04-22] MEDS: ENOXAPARIN 40 MG/0.4 ML SYRINGE SQ SCH (14:21)
[2021-04-22] MEDS: LACTULOSE 20 GM/30 ML CUP PO SCH (15:30)
[2021-04-22] MEDS: LORazepam 1 MG TAB PO SCH ×2 (15:31→21:32)
[2021-04-22] MEDS: ACETAMINOPHEN TAB 325 MG TAB PO PRN (21:32)
[2021-04-22] MEDS: ATORVASTATIN 20 MG TAB PO SCH (21:32)
[2021-04-22] MEDS: MELATONIN 3 MG TABLET PO PRN (21:32)
[2021-04-23] MEDS: SODIUM CHLORIDE 0.9% 1,000 ML IV SCH ×3 (04:26→16:08)
[2021-04-23 06:46] LABS: Basophils % (A) 0 %; Eosinophils # (A) 0.2 k/uL (0-0.7); Eosinophils % (A) 2 %; HCT 40.4 % (39.0-53.0); HGB 13.2 gm/dL (13.0-17.5); Lymphocytes # (A) 1.5 k/uL (1.0-4.8); Lymphocytes % (A) 11 %; MCH 31.1 pg (25.0-35.0); MCHC 32.6 g/dL (31.0-37.0); MCV 95.4 fL (80.0-100.0); Mean Platelet Volume 9.7; Monocytes # (A) 0.7 k/uL (0-1.0); Monocytes % (A) 5 %; Neutrophils # (A) 11.4 k/uL (1.3-7.7); Neutrophils % (A) 80 %; Platelet Count 155 k/uL (150-450); RBC 4.23 m/uL (4.30-5.90); RDW 12.3 % (11.5-15.5); WBC 14.2 k/uL (3.8-10.6)
[2021-04-23 07:18] LABS: ALT 28 U/L (4-49); AST 30 U/L (17-59); African American GFR (CKD) >90 (>60 ml/min/1.73 sqM); Albumin 2.8 g/dL (3.5-5.0); Alkaline Phosphatase 89 U/L (38-126); Anion Gap 7 mmol/L; Blood Urea Nitrogen 11 mg/dL (9-20); Calcium 8.2 mg/dL (8.4-10.2); Carbon Dioxide 19 mmol/L (22-30); Chloride 116 mmol/L (98-107); Globulin 2.7 g/dL; Glucose 88 mg/dL (74-99); Non-African American GFR(CKD) >90 (>60 ml/min/1.73 sqM); Sodium 142 mmol/L (137-145); Total Bilirubin 0.7 mg/dL (0.2-1.3); Total Protein 5.5 g/dL (6.3-8.2)
[2021-04-23] MEDS: [UNRECOGNIZED DRUG - OTHER] PO SCH ×4 (08:24→21:55)
[2021-04-23] MEDS: ASPIRIN 81 MG PO SCH (08:29)
[2021-04-23] MEDS: ENOXAPARIN 40 MG/0.4 ML SYRINGE SQ SCH (08:29)
[2021-04-23] MEDS: LORazepam 1 MG TAB PO SCH ×3 (08:29→21:54)
[2021-04-23 14:28] VITALS: BMI 22.1
[2021-04-23] MEDS: LACTULOSE 20 GM/30 ML CUP PO SCH (16:10)
--- NOTE | 2021-04-23 20:09 | P.PN ---
Progress Note - Text Progress Note Date: 04/23/21 Chief Complaint: Fever History of presenting complaint: This is a 70-year-old patient who follows with visiting physicians. At the baseline patient is nonverbal, and can make hand gestures altered rapid arm. He can ablate with a gait belt and assistance. His diet is ground diet nectar thick liquids. He was noticed at the space of residence to have a fever and was brought in. Patient's found over UTI. Started on IV ceftriaxone. Patient sitting up out of bed. Awake. I'll answering questions. Appears to be comfortable. Patient nonverbal, not able to give any history. Admitted with acute UTI with cystitis from Whitaker catheter, pneumonia. Started on IV ceftriaxone. April 23: Laying in bed. Nonverbal. Appears comfortable. Eating fairly well. On IV ceftriaxone. IV fluids. Review of systems, cannot be done as patient nonverbal Active Medications Acetaminophen (Acetaminophen Tab 325 Mg Tab) 650 mg PO Q6HR PRN PRN Reason: Mild Pain or Fever > 100.5 Last Admin: 04/22/21 21:32 Dose: 650 mg Documented by: Al Hydroxide/Mg Hydroxide (Mag Hydrox/Al Hydrox/Simeth 30 Ml Cup) 15 ml PO Q6HR PRN PRN Reason: Indigestion Aspirin (Aspirin 81 Mg) 81 mg PO DAILY@0700 [facility] Last Admin: 04/23/21 08:29 Dose: 81 mg Documented by: Atorvastatin Calcium (Atorvastatin 20 Mg Tab) 20 mg PO HS@2000 [facility] Last Admin: 04/22/21 21:32 Dose: 20 mg Documented by: Calcium Carbonate/Glycine (Calcium Carbonate 500 Mg Chewable) 1,000 mg PO Q4HR PRN PRN Reason: Dyspepsia Enoxaparin Sodium (Enoxaparin 40 Mg/0.4 Ml Syringe) 40 mg SQ DAILY [facility] Last Admin: 04/23/21 08:29 Dose: 40 mg Documented by: Ceftriaxone Sodium 1 gm/ (Sodium Chloride) 50 mls @ 100 mls/hr IVPB Q12H [facility] Last Admin: 04/23/21 16:08 Dose: 100 mls/hr Documented by: Sodium Chloride (Saline 0.9%) 1,000 mls @ 130 mls/hr IV .Q7H42M [facility] Last Admin: 04/23/21 16:08 Dose: 130 mls/hr Documented by: Lactulose (Lactulose 20 Gm/30 Ml Cup) 10 gm PO DAILY@1600 [facility] Last Admin: 04/23/21 16:10 Dose: 10 gm Documented by: Lorazepam (Lorazepam 1 Mg Tab) 1 mg PO TID@0700,1600,2000 [facility] Last Admin: 04/23/21 16:10 Dose: 1 mg Documented by: Lorazepam (Lorazepam 1 Mg Tab) 1 mg PO BID PRN PRN Reason: Anxiety Magnesium Hydroxide (Magnesium Hydroxide 2,400 Mg/10 Ml Cup) 2,400 mg PO DAILY PRN PRN Reason: Constipation Melatonin (Melatonin 3 Mg Tablet) 3 mg PO HS PRN PRN Reason: Insomnia Last Admin: 04/22/21 21:32 Dose: 3 mg Documented by: Naloxone HCl (Naloxone 0.4 Mg/Ml 1 Ml Vial) 0.2 mg IV Q2M PRN PRN Reason: Opioid Reversal Non-Formulary Medication (Simply Thick) 1 dose PO QID@07,12,16,20 [facility] Last Admin: 04/23/21 16:52 Dose: Not Given Documented by: Ondansetron HCl (Ondansetron 4 Mg/2 Ml Vial) 4 mg IVP Q8HR PRN PRN Reason: Nausea And Vomiting Past medical history to include: Chronic dysphagia. Mental retardation. Hyperlipidemia, Social history: No history of smoking or alcohol Physical examination: VITAL: 98.9, 70, 19, 124/69, 94% room air GENERAL: Laying in bed, awake, comfortable. EYES: Pupils equal. Conjunctiva normal. NECK: JVD not raised; masses not palpable. HEART: First and second heart sounds are normal; no edema. LUNGS: Respiratory rate normal; clear to auscultation. ABDOMEN: Soft, nontender, liver spleen not palpable, no masses palpable. PSYCH: Cannot assess as patient nonverball. NEUROLOGICAL: Doesn't answer questions. Can move his limbs. INVESTIGATIONS, reviewed in the clinical context: April 23: White count 4. 0.2 hemoglobin 13.2 potassium 4 creatinine 0.63 pro- calcitonin 0.3 to Urine culture: Gram-negative bacilli WBC 15.7 hemoglobin 14.9 platelets 122 potassium 3.8 bicarb 17 creatinine 0.81 lactic acid 2.7 and repeat 1.4 UA positive for ketones, leukoesterase, WBC, bacteria EKG tracing personally reviewed by me-poor baseline, sinus tachycardia Chest x-ray film personally reviewed by me-infiltrates in the lower half Assessment and plan: -Bilateral pneumonia, suspect gram-negative organism causing sepsis IV ceftriaxone -Acute UTI with cystitis, from gram-negative bacilli IV ceftriaxone. -Sepsis from pneumonia IV fluids -Thrombocytopenia likely from sepsis Follow CBC -Hyperlipidemia Lipitor -Chronic mental retardation -Chronic gait dysfunction, patient needs some assistance in walking Fall precautions Continue IV ceftriaxone. IV fluids. Home medications resumed. Repeat labs. Await culture results.
[2021-04-23] MEDS: ATORVASTATIN 20 MG TAB PO SCH (21:54)
[2021-04-23] MEDS: LACTATED RINGERS 1,000 ML IV SCH (21:55)
[2021-04-24] MEDS: ACETAMINOPHEN TAB 325 MG TAB PO PRN (00:41)
[2021-04-24] MEDS: MELATONIN 3 MG TABLET PO PRN (00:41)
[2021-04-24 06:52] LABS: Basophils % (A) 1 %; Eosinophils # (A) 0.2 k/uL (0-0.7); Eosinophils % (A) 3 %; HGB 13.4 gm/dL (13.0-17.5); Lymphocytes # (A) 0.9 k/uL (1.0-4.8); Lymphocytes % (A) 14 %; MCH 30.8 pg (25.0-35.0); MCHC 32.7 g/dL (31.0-37.0); MCV 94.2 fL (80.0-100.0); Mean Platelet Volume 9.7; Monocytes # (A) 0.4 k/uL (0-1.0); Monocytes % (A) 6 %; Neutrophils # (A) 4.8 k/uL (1.3-7.7); Neutrophils % (A) 75 %; Platelet Count 166 k/uL (150-450); RBC 4.35 m/uL (4.30-5.90); RDW 12.1 % (11.5-15.5); WBC 6.4 k/uL (3.8-10.6)
[2021-04-24] MEDS: ENOXAPARIN 40 MG/0.4 ML SYRINGE SQ SCH (07:59)
[2021-04-24] MEDS: ASPIRIN 81 MG PO SCH (07:59)
[2021-04-24] MEDS: LORazepam 1 MG TAB PO SCH ×3 (07:59→20:09)
[2021-04-24] MEDS: [UNRECOGNIZED DRUG - OTHER] PO SCH (07:59)
[2021-04-24] MEDS: LACTATED RINGERS 1,000 ML IV SCH ×2 (08:01→22:29)
[2021-04-24] MEDS: LACTULOSE 20 GM/30 ML CUP PO SCH (15:38)
[2021-04-24] MEDS: ATORVASTATIN 20 MG TAB PO SCH (20:09)
--- NOTE | 2021-04-24 20:34 | P.PN ---
Progress Note - Text Progress Note Date: 04/24/21 Chief Complaint: Fever History of presenting complaint: This is a 70-year-old patient who follows with visiting physicians. At the baseline patient is nonverbal, and can make hand gestures altered rapid arm. He can ablate with a gait belt and assistance. His diet is ground diet nectar thick liquids. He was noticed at the space of residence to have a fever and was brought in. Patient's found over UTI. Started on IV ceftriaxone. Patient sitting up out of bed. Awake. I'll answering questions. Appears to be comfortable. Patient nonverbal, not able to give any history. Admitted with acute UTI with cystitis from Whitaker catheter, pneumonia. Started on IV ceftriaxone. April 23: Laying in bed. Nonverbal. Appears comfortable. Eating fairly well. On IV ceftriaxone. IV fluids. April 24: Laying in bed, awake, comfortable. IV ceftriaxone. Urine cultures pending. Review of systems, cannot be done as patient nonverbal Active Medications Acetaminophen (Acetaminophen Tab 325 Mg Tab) 650 mg PO Q6HR PRN PRN Reason: Mild Pain or Fever > 100.5 Last Admin: 04/24/21 00:41 Dose: 650 mg Documented by: Al Hydroxide/Mg Hydroxide (Mag Hydrox/Al Hydrox/Simeth 30 Ml Cup) 15 ml PO Q6HR PRN PRN Reason: Indigestion Aspirin (Aspirin 81 Mg) 81 mg PO DAILY@0700 [facility] Last Admin: 04/24/21 07:59 Dose: 81 mg Documented by: Atorvastatin Calcium (Atorvastatin 20 Mg Tab) 20 mg PO HS@2000 [facility] Last Admin: 04/24/21 20:09 Dose: 20 mg Documented by: Calcium Carbonate/Glycine (Calcium Carbonate 500 Mg Chewable) 1,000 mg PO Q4HR PRN PRN Reason: Dyspepsia Enoxaparin Sodium (Enoxaparin 40 Mg/0.4 Ml Syringe) 40 mg SQ DAILY [facility] Last Admin: 04/24/21 07:59 Dose: 40 mg Documented by: Ceftriaxone Sodium 1 gm/ (Sodium Chloride) 50 mls @ 100 mls/hr IVPB Q12H [facility] Last Admin: 04/24/21 13:55 Dose: 100 mls/hr Documented by: Lactated Ringer's (Lactated Ringers) 1,000 mls @ 75 mls/hr IV .[id number] [facility] Last Admin: 04/24/21 08:01 Dose: 75 mls/hr Documented by: Lactulose (Lactulose 20 Gm/30 Ml Cup) 10 gm PO DAILY@1600 [facility] Last Admin: 04/24/21 15:38 Dose: 10 gm Documented by: Lorazepam (Lorazepam 1 Mg Tab) 1 mg PO TID@0700,1600,2000 [facility] Last Admin: 04/24/21 20:09 Dose: 1 mg Documented by: Lorazepam (Lorazepam 1 Mg Tab) 1 mg PO BID PRN PRN Reason: Anxiety Magnesium Hydroxide (Magnesium Hydroxide 2,400 Mg/10 Ml Cup) 2,400 mg PO DAILY PRN PRN Reason: Constipation Melatonin (Melatonin 3 Mg Tablet) 3 mg PO HS PRN PRN Reason: Insomnia Last Admin: 04/24/21 00:41 Dose: 3 mg Documented by: Naloxone HCl (Naloxone 0.4 Mg/Ml 1 Ml Vial) 0.2 mg IV Q2M PRN PRN Reason: Opioid Reversal Ondansetron HCl (Ondansetron 4 Mg/2 Ml Vial) 4 mg IVP Q8HR PRN PRN Reason: Nausea And Vomiting Past medical history to include: Chronic dysphagia. Mental retardation. Hyperlipidemia, Social history: No history of smoking or alcohol Physical examination: VITAL: 98.7, 78, 18, 139/86, 98% room air GENERAL: Laying in bed, awake, comfortable. EYES: Pupils equal. Conjunctiva normal. NECK: JVD not raised; masses not palpable. HEART: First and second heart sounds are normal; no edema. LUNGS: Respiratory rate normal; clear to auscultation. ABDOMEN: Soft, nontender, liver spleen not palpable, no masses palpable. PSYCH: Cannot assess as patient nonverball. NEUROLOGICAL: Doesn't answer questions. Can move his limbs. INVESTIGATIONS, reviewed in the clinical context: April 24: WBC 6.4 hemoglobin 13.4 platelets 166. Pro-calcitonin 0.23 April 23: White count 4. 0.2 hemoglobin 13.2 potassium 4 creatinine 0.63 pro- calcitonin 0.3 to Urine culture: Gram-negative bacilli WBC 15.7 hemoglobin 14.9 platelets 122 potassium 3.8 bicarb 17 creatinine 0.81 lactic acid 2.7 and repeat 1.4 UA positive for ketones, leukoesterase, WBC, bacteria EKG tracing personally reviewed by me-poor baseline, sinus tachycardia Chest x-ray film personally reviewed by me-infiltrates in the lower half Assessment and plan: -Bilateral pneumonia, suspect gram-negative organism causing sepsis IV ceftriaxone -Acute UTI with cystitis, from gram-negative bacilli IV ceftriaxone. -Sepsis from pneumonia IV fluids -Thrombocytopenia likely from sepsis Follow CBC -Hyperlipidemia Lipitor -Chronic mental retardation -Chronic gait dysfunction, patient needs some assistance in walking Fall precautions Continue IV ceftriaxone. IV fluids. Home medications resumed. Hopefully discharge tomorrow.
[2021-04-25] MEDS: ASPIRIN 81 MG PO SCH (07:34)
[2021-04-25] MEDS: ENOXAPARIN 40 MG/0.4 ML SYRINGE SQ SCH (07:34)
[2021-04-25] MEDS: LORazepam 1 MG TAB PO SCH ×2 (07:34→15:09)
[2021-04-25] MEDS: LACTATED RINGERS 1,000 ML IV SCH (07:35)
--- NOTE | 2021-04-25 12:30 | P.DS ---
Providers Date of admission: 04/22/21 02:43 Expected date of discharge: 04/25/21 Attending physician: Salo Lockwood Primary care physician: Bryce Hospital Course: Chief Complaint: Fever History of presenting complaint: This is a 70-year-old patient who follows with visiting physicians. At the baseline patient is nonverbal, and can make hand gestures altered rapid arm. He can ablate with a gait belt and assistance. His diet is ground diet nectar thick liquids. He was noticed at the space of residence to have a fever and was brought in. Patient's found over UTI. Started on IV ceftriaxone. Patient sitting up out of bed. Awake. I'll answering questions. Appears to be comfortable. Patient nonverbal, not able to give any history. Admitted with acute UTI with cystitis from Whitaker catheter, pneumonia. Started on IV ceftriaxone. April 23: Laying in bed. Nonverbal. Appears comfortable. Eating fairly well. On IV ceftriaxone. IV fluids. April 24: Laying in bed, awake, comfortable. IV ceftriaxone. Urine cultures pending. April 25: Comfortable. Oral intake fair. Urine culture E. coli. Past medical history to include: Chronic dysphagia. Mental retardation. Hyperlipidemia, Social history: No history of smoking or alcohol Physical examination: VITAL: 98.6, 72, 18, 126/72, 93% room air GENERAL: Laying in bed, awake, comfortable. EYES: Pupils equal. Conjunctiva normal. NECK: JVD not raised; masses not palpable. HEART: First and second heart sounds are normal; no edema. LUNGS: Respiratory rate normal; clear to auscultation. ABDOMEN: Soft, nontender, liver spleen not palpable, no masses palpable. PSYCH: Cannot assess as patient nonverball. NEUROLOGICAL: Doesn't answer questions. Can move his limbs. INVESTIGATIONS, reviewed in the clinical context: April 24: WBC 6.4 hemoglobin 13.4 platelets 166. Pro-calcitonin 0.23 April 23: White count 4. 0.2 hemoglobin 13.2 potassium 4 creatinine 0.63 pro- calcitonin 0.3 to Urine culture: E. coli WBC 15.7 hemoglobin 14.9 platelets 122 potassium 3.8 bicarb 17 creatinine 0.81 lactic acid 2.7 and repeat 1.4 UA positive for ketones, leukoesterase, WBC, bacteria EKG tracing personally reviewed by manisha baseline, sinus tachycardia Chest x-ray film personally reviewed by me-infiltrates in the lower half Assessment and plan: -Bilateral pneumonia, suspect gram-negative organism causing sepsis IV ceftriaxone. Changed to Ceftin for 3 more days -Acute UTI with cystitis, from E. coli IV ceftriaxone. Ceftin for 3 more days -Sepsis from pneumonia: Improved IV fluids -Thrombocytopenia likely from sepsis: Improved Follow CBC -Hyperlipidemia Lipitor -Chronic mental retardation -Chronic gait dysfunction, patient needs some assistance in walking Fall precautions Disposition: [facility] Plan - Discharge Summary Discharge Rx Participant: Yes New Discharge Prescriptions: New Cefuroxime Axetil [Ceftin] 500 mg PO BID #6 tab Melatonin 3 mg PO HS PRN #30 tablet PRN Reason: Insomnia Continue Nasal Decongestant 2 spray EA NOSTRIL Q12H PRN PRN Reason: Congestion Secura Extra Cream 1 applic TOPICAL DAILY PRN PRN Reason: buttocks LORazepam [Ativan] 1 mg PO BID PRN PRN Reason: Anxiety Aspirin EC [Ecotrin Low Dose] 81 mg PO DAILY@0700 Atorvastatin [Lipitor] 20 mg PO HS@1999 Lactulose 10 gm PO DAILY@1600 LORazepam [Ativan] 1 mg PO TID@0700,1599,1999 Simply Thick 1 dose PO QID@07,12,16,20 Acyclovir 5% Oint [Zovirax Oint] 1 applic TOPICAL 5XD PRN PRN Reason: Cold Sores Discontinued Cetirizine HCl [Zyrtec] 10 mg PO DAILY@0700 diphenhydrAMINE [Benadryl] 25 mg PO HS PRN PRN Reason: Insomnia Discharge Medication List Aspirin EC [Ecotrin Low Dose] 81 mg PO DAILY@0700 07/27/20 [History] Atorvastatin [Lipitor] 20 mg PO HS@199907/27/20 [History] LORazepam [Ativan] 1 mg PO BID PRN 07/27/20 [History] LORazepam [Ativan] 1 mg PO TID@0700,1600,199907/27/20 [History] Lactulose 10 gm PO DAILY@1600 07/27/20 [History] Nasal Decongestant 2 spray EA NOSTRIL Q12H PRN 07/27/20 [History] Secura Extra Cream 1 applic TOPICAL DAILY PRN 07/27/20 [History] Acyclovir 5% Oint [Zovirax Oint] 1 applic TOPICAL 5XD PRN 04/22/21 [History] Simply Thick 1 dose PO QID@07,12,16,20 04/22/21 [History] Cefuroxime Axetil [Ceftin] 500 mg PO BID #6 tab 04/25/21 [Rx] Melatonin 3 mg PO HS PRN #30 tablet 04/25/21 [Rx] Follow up Appointment(s)/Referral(s): Madan Mancuso MD [Primary Care Provider] - 1-2 days Patient Instructions/Handouts: Urinary Tract Infection in Men (DC) Activity/Diet/Wound Care/Special Instructions: *Discharging RN - call report to [facility] [phone] - they will come get patient at discharge.
[2021-04-25 13:50] VITALS: BP 134/78; PULSE 68; RESP 16; TEMP 98.2
[2021-04-25] MEDS: LACTULOSE 20 GM/30 ML CUP PO SCH (15:09)
== END 2021-04-25 16:22 | disposition home health service (06) | DRG 871 ==
LOC: EC 00:26 → SUPCPDRO 00:26 → 4SSUR 02:43
PROVIDERS: ADMIT Hospitalist; ATTEND Hospitalist
DX: A41.9 Sepsis, unspecified organism (principal); J18.9 Pneumonia, unspecified organism; E78.5 Hyperlipidemia, unspecified; F41.9 Anxiety disorder, unspecified; F79 Unspecified intellectual disabilities; G47.00 Insomnia, unspecified; K59.00 Constipation, unspecified; N30.90 Cystitis, unspecified without hematuria; Z79.82 Long term (current) use of aspirin; Z79.899 Other long term (current) drug therapy; D69.59 Other secondary thrombocytopenia; B96.20 Unspecified Escherichia coli [E. coli] as the cause of diseases classified elsewhere
CPT/HCPCS: 36415; 71046; 80053; 81001; 82550; 83605; 83690; 83735; 83880; 84100; 84145; 84484; 85025; 85610; 85730; 87040; 87077; 87086; 87186; 93005; 96361; 96372; 99285

== ENCOUNTER 2021-04-27 13:20 | Emergency (ER) | payer MEDICARE, OTHER ==
[2021-04-27 13:26] VITALS: BP 131/78; PULSE 89; RESP 18; TEMP 97.6
--- NOTE | 2021-04-27 14:43 | ED ---
General Adult HPI - General Chief complaint: Urogenital Stated complaint: trouble urinating Time Seen by Provider: 04/27/21 13:28 Source: RN notes reviewed, Caregiver Mode of arrival: wheelchair Limitations: language barrier, altered mental status, physical limitation - History of Present Illness Initial comments: Patient is a pleasant 70-year-old male presenting to the emergency Department with decreased urination. Patient does have recent urinary tract infection of which patient was hospitalized for 3 days. Patient is nonverbal and unable to express any complaints. History is taken from event host. I did speak also on the phone with the second event host states patient has had little urinary output since just last night. They're also concern for some swelling and redness. - Related Data Home Medications Medication Instructions Recorded Confirmed Aspirin EC [Ecotrin Low Dose] 81 mg PO DAILY@0700 07/27/20 04/22/21 Atorvastatin [Lipitor] 20 mg PO HS@199907/27/20 04/22/21 LORazepam [Ativan] 1 mg PO BID PRN 07/27/20 04/22/21 LORazepam [Ativan] 1 mg PO TID@0700,1600,199907/27/20 04/22/21 Lactulose 10 gm PO DAILY@1600 07/27/20 04/22/21 Nasal Decongestant 2 spray EA NOSTRIL Q12H PRN 07/27/20 04/22/21 Secura Extra Cream 1 applic TOPICAL DAILY PRN 07/27/20 04/22/21 Acyclovir 5% Oint [Zovirax Oint] 1 applic TOPICAL 5XD PRN 04/22/21 04/22/21 Simply Thick 1 dose PO QID@07,12,16,20 04/22/21 04/22/21 Previous Rx's Medication Instructions Recorded Cefuroxime Axetil [Ceftin] 500 mg PO BID #6 tab 04/25/21 Melatonin 3 mg PO HS PRN #30 tablet 04/25/21 Neomycin/Bacitracin/Polymyxinb 1 applic TOPICAL BID #30 gm 04/27/21 [Neosporin Ointment] Allergies Allergy/AdvReac Type Severity Reaction Status Date / Time No Known Allergies Allergy Verified 04/27/21 13:26 Review of Systems ROS Statement: Those systems with pertinent positive or pertinent negative responses have been documented in the HPI. Limitations: ROS unobtainable due to patients medical condition Past Medical History Additional Past Medical History / Comment(s): skin CA, mentally disabled History of Any Multi-Drug Resistant Organisms: None Reported Past Surgical History: No Surgical Hx Reported Past Anesthesia/Blood Transfusion Reactions: No Reported Reaction Past Psychological History: No Psychological Hx Reported Smoking Status: Never smoker Past Alcohol Use History: None Reported Past Drug Use History: None Reported General Exam Limitations: language barrier, altered mental status, physical limitation General appearance: alert, in no apparent distress Head exam: Present: atraumatic Eye exam: Present: normal appearance Respiratory exam: Present: normal lung sounds bilaterally Cardiovascular Exam: Present: regular rate, normal rhythm GI/Abdominal exam: Present: soft. Absent: distended, tenderness, guarding, rebound, rigid exam: Present: other (Minimal skin excoriation/erythema, nontender.). Absent: testicular tenderness, scrotal swelling Neurological exam: Present: alert Skin exam: Present: intact Course Vital Signs 04/27/21 13:22 Temperature 97.6 F Pulse Rate 89 Respiratory 18 Rate Blood Pressure 131/78 O2 Sat by Pulse 98 Oximetry Medical Decision Making - Medical Decision Making Patient has 300 mL of urine out with Whitaker catheter. Exam is not concerning for acute infection. Patient will be provided prescription for antibiotic cream and event host is advised to keep close check on this area and return if swelling or increased redness or fever. Also informed to watch for patient potentially trying to remove catheter. Disposition Clinical Impression: Urinary retention Disposition: HOME SELF-CARE Condition: Stable Instructions (If sedation given, give patient instructions): Urinary Retention in Men (ED) Additional Instructions: Apply antibiotic ointment 1-2 times daily to penile area for the next several days. Prescription has been sent to pharmacy. This is available [id number] as well. Please check this area frequently. Return for increased redness, swelling, fevers, difficulty with urination, worsening symptoms or any other concerns. Please ensure patient does not pull on Whitaker catheter. Prescriptions: Neomycin/Bacitracin/Polymyxinb [Neosporin Ointment] 1 applic TOPICAL BID #30 gm Is patient prescribed a controlled substance at d/c from ED?: No Referrals: Crow Gardner MD [Primary Care Provider] - 1-2 days Time of Disposition: 14:42
== END 2021-04-27 15:00 | disposition home or self-care (01) ==
LOC: EC 13:20
DX: R33.9 Retention of urine, unspecified (principal)
CPT/HCPCS: 51702; 51798; 99283

== ENCOUNTER 2021-04-30 11:29 | Emergency (ER) | payer MEDICARE, OTHER ==
[2021-04-30 11:55] VITALS: BP 137/80; PULSE 80; RESP 18; TEMP 98.2
--- NOTE | 2021-04-30 13:14 | ED ---
General Adult HPI - General Chief complaint: Skin/Abscess/Foreign Body Stated complaint: revisit - catheter problem, rash Time Seen by Provider: 04/30/21 13:11 Source: RN notes reviewed, Caregiver Mode of arrival: wheelchair Limitations: altered mental status, physical limitation - History of Present Illness Initial comments: 70-year-old male presents emergency Department chief complaint of a rash. Patient is brought here by caregiver. Patient's rash started last few days. Patient was seen by PCP and was given nystatin has not fully started this at this time. Patient has noted Whitaker catheter which is new patient is usually incontinent, wears brief. Patient denies any other complaints. - Related Data Home Medications Medication Instructions Recorded Confirmed Aspirin EC [Ecotrin Low Dose] 81 mg PO DAILY@0700 07/27/20 04/22/21 Atorvastatin [Lipitor] 20 mg PO HS@199907/27/20 04/22/21 LORazepam [Ativan] 1 mg PO BID PRN 07/27/20 04/22/21 LORazepam [Ativan] 1 mg PO TID@0700,1600,199907/27/20 04/22/21 Lactulose 10 gm PO DAILY@1600 07/27/20 04/22/21 Nasal Decongestant 2 spray EA NOSTRIL Q12H PRN 07/27/20 04/22/21 Secura Extra Cream 1 applic TOPICAL DAILY PRN 07/27/20 04/22/21 Acyclovir 5% Oint [Zovirax Oint] 1 applic TOPICAL 5XD PRN 04/22/21 04/22/21 Simply Thick 1 dose PO QID@07,12,16,20 04/22/21 04/22/21 Previous Rx's Medication Instructions Recorded Cefuroxime Axetil [Ceftin] 500 mg PO BID #6 tab 04/25/21 Melatonin 3 mg PO HS PRN #30 tablet 04/25/21 Neomycin/Bacitracin/Polymyxinb 1 applic TOPICAL BID #30 gm 04/27/21 [Neosporin Ointment] Fluconazole [Diflucan] 150 mg PO ONCE #7 tab 04/30/21 Nystatin 100,000 Unit/gm Powd 1 applic TOPICAL BID #30 gram 04/30/21 [Mycostatin Powder] Allergies Allergy/AdvReac Type Severity Reaction Status Date / Time No Known Allergies Allergy Verified 04/30/21 11:55 Review of Systems ROS Statement: Those systems with pertinent positive or pertinent negative responses have been documented in the HPI. ROS Other: All systems not noted in ROS Statement are negative. Past Medical History Past Medical History: Cancer Additional Past Medical History / Comment(s): skin CA, mentally disabled History of Any Multi-Drug Resistant Organisms: None Reported Past Surgical History: No Surgical Hx Reported Additional Past Surgical History / Comment(s): skin cancer removed from face Past Anesthesia/Blood Transfusion Reactions: No Reported Reaction Past Psychological History: No Psychological Hx Reported Smoking Status: Never smoker Past Alcohol Use History: None Reported Past Drug Use History: None Reported General Exam Limitations: altered mental status, physical limitation General appearance: alert, in no apparent distress Head exam: Present: atraumatic, normocephalic, normal inspection Neck exam: Present: normal inspection, full ROM. Absent: tenderness, meningismus, lymphadenopathy Respiratory exam: Present: normal lung sounds bilaterally. Absent: respiratory distress, wheezes, rales, rhonchi, stridor Cardiovascular Exam: Present: regular rate, normal rhythm, normal heart sounds. Absent: systolic murmur, diastolic murmur, rubs, gallop, clicks Neurological exam: Present: alert Skin exam: Present: warm, dry, intact, normal color, rash (Erythematous raised border rash within the groin) Course Vital Signs 04/30/21 11:49 Temperature 98.2 F Pulse Rate 80 Respiratory 18 Rate Blood Pressure 137/80 O2 Sat by Pulse 99 Oximetry Medical Decision Making - Medical Decision Making Patient will be given nystatin, Diflucan will be discharged in stable condition. Disposition Clinical Impression: Tinea corporis, Balantidiasis Disposition: HOME SELF-CARE Condition: Stable Instructions (If sedation given, give patient instructions): Skin Yeast Infection (ED) Additional Instructions: Please return to the Emergency Department if symptoms worsen or any other concerns. Prescriptions: Fluconazole [Diflucan] 150 mg PO ONCE #7 tab Nystatin 100,000 Unit/gm Powd [Mycostatin Powder] 1 applic TOPICAL BID #30 gram Is patient prescribed a controlled substance at d/c from ED?: No Referrals: Crow Gardner MD [Primary Care Provider] - 1-2 days Time of Disposition: 13:14
== END 2021-04-30 13:28 | disposition home or self-care (01) ==
LOC: EC 11:29
DX: A07.0 Balantidiasis (principal); B35.4 Tinea corporis; Z79.82 Long term (current) use of aspirin
CPT/HCPCS: 99282

== ENCOUNTER 2022-10-07 00:54 | Inpatient (IN) | payer MEDICARE, OTHER ==
[2022-10-07 00:59] LABS: Glucose,Whole Blood 89 mg/dL (70-110)
[2022-10-07] MEDS ORDERED: ONDANSETRON 4 MG/2 ML VIAL IVP STA (01:02)
--- NOTE | 2022-10-07 01:12 | ED ---
Nausea/Vomiting/Diarrhea HPI - General Chief complaint: Nausea/Vomiting/Diarrhea Stated complaint: Vomiting Time Seen by Provider: 10/07/22 00:56 Source: Caregiver Mode of arrival: EMS Limitations: physical limitation - History of Present Illness Initial comments: This patient is 72-year-old man from [facility] home to be evaluated for vomiting. History is from the caregiver who is at the bedside. Symptoms reportedly started around 8 PM tonight. He had a number of rounds of vomiting with some liquid stomach contents. He had eaten normally earlier in the day and there was no food contents in the emesis. Other than that, the patient has not appeared t o be in marked distress. Recently he has had some episodes of very soft bowel movements and his physician had put him on Imodium. No change noted in urine. MD complaint: vomiting -: hour(s) Description of Vomiting: food contents, bilious Associated Symptoms: nausea/vomiting - Related Data Home Medications Medication Instructions Recorded Confirmed Aspirin EC [Ecotrin Low Dose] 81 mg PO DAILY@0700 07/27/20 10/07/22 Atorvastatin [Lipitor] 20 mg PO HS@199907/27/20 10/07/22 LORazepam [Ativan] 1 mg PO BID PRN 07/27/20 10/07/22 LORazepam [Ativan] 1 mg PO TID@0700,1600,199907/27/20 10/07/22 Lactulose 10 gm PO DAILY@1600 07/27/20 10/07/22 Simply Thick 1 dose PO DIRECTED 04/22/21 10/07/22 Cetirizine HCl 10 mg PO DAILY@0700 10/07/22 10/07/22 Oxymetazoline 0.05% Nasl [place] 2 spray EA NOSTRIL Q12H PRN 10/07/22 10/07/22 [Afrin 0.05% Nasal [place]] Tamsulosin [Flomax] 0.4 mg PO DAILY@0700 10/07/22 10/07/22 diphenhydrAMINE HCL [Benadryl] 25 mg PO HS PRN 10/07/22 10/07/22 Previous Rx's Medication Instructions Recorded Melatonin 3 mg PO HS PRN #30 tablet 04/25/21 Allergies Allergy/AdvReac Type Severity Reaction Status Date / Time No Known Allergies Allergy Verified 10/07/22 09:24 Review of Systems ROS Statement: Those systems with pertinent positive or pertinent negative responses have been documented in the HPI. ROS Other: All systems not noted in ROS Statement are negative. Limitations: ROS unobtainable due to patients medical condition Constitutional: Denies: fever Respiratory: Denies: cough, dyspnea Gastrointestinal: Reports: as per HPI, vomiting, diarrhea Genitourinary: Denies: dysuria, hematuria Skin: Denies: rash Past Medical History Past Medical History: Cancer Additional Past Medical History / Comment(s): skin CA, mentally disabled History of Any Multi-Drug Resistant Organisms: None Reported Past Surgical History: No Surgical Hx Reported Additional Past Surgical History / Comment(s): skin cancer removed from face Past Anesthesia/Blood Transfusion Reactions: No Reported Reaction Past Psychological History: No Psychological Hx Reported Smoking Status: Never smoker Past Alcohol Use History: None Reported Past Drug Use History: None Reported - Past Family History Father Family Medical History: Cancer, Hypertension Additional Family Medical History / Comment(s): Father of lung cancer. He was a smoker. Mother Family Medical History: Dementia, Hypertension Additional Family Medical History / Comment(s): Mother of alzheimer's. General Exam General appearance: alert, in no apparent distress, other (Patient has lying on the stretcher, watching examiner, does not appear in any distress.) Head exam: Present: atraumatic, normocephalic Eye exam: Present: normal appearance. Absent: scleral icterus, conjunctival inj ection Neck exam: Present: normal inspection, full ROM. Absent: tenderness Respiratory exam: Present: normal lung sounds bilaterally. Absent: respiratory distress, wheezes, rales, rhonchi, stridor, chest wall tenderness Cardiovascular Exam: Present: regular rate, normal rhythm, normal heart sounds. Absent: systolic murmur, diastolic murmur, rubs, gallop GI/Abdominal exam: Present: soft. Absent: distended, tenderness, guarding, rebound, rigid, mass Extremities exam: Present: normal inspection, normal capillary refill. Absent: pedal edema, calf tenderness Back exam: Present: normal inspection. Absent: CVA tenderness (R), CVA tenderness (L) Neurological exam: Present: alert Skin exam: Present: warm, dry, intact, normal color. Absent: rash Course Vital Signs 10/07/22 10/07/22 10/07/22 00:55 06:03 11:00 Temperature 98.4 F Pulse Rate 71 55 L 80 Respiratory 16 16 18 Rate Blood Pressure 120/83 117/80 112/60 O2 Sat by Pulse 98 98 98 Oximetry - Reevaluation(s) Reevaluation #1: 10/07/22 05:23 I was able to provide an update, by phone, to the patient's medical decision maker which is his sister, Laney Sales. She did discuss CODE STATUS with me and the patient does apparently have "no code" paperwork 10/07/22 07:56 Medical Decision Making - Medical Decision Making This patient is 72-year-old man with history of severe cognitive impairment. He had workup here including computed tomography scan because the exam produced some inconsistent results. Time he seems to have tenderness at times he does not and he is not able to communicate what he is feeling. The workup appears to show ileus versus early small bowel obstruction. Will admit for bowel rest, IV hydration and surgical consultation. Patient had abdominal x-ray which I interpreted as showing air throughout the bowel, but the study was inadequate to show pneumoperitoneum. Patient had computed tomography scan of the abdomen and pelvis which I inte rpreted as showing possible ileus versus developing bowel obstruction. Was pt. sent in by a medical professional or institution? @ -Patient is sent in from long-term care facility Did you speak to anyone other than the patient for history? @ -[I did speak with the caregiver at her long-term care facility and also with the patient's sister by phone Did you review nursing and triage notes? @ -[agree Were old charts reviewed? @ -[ Differential Diagnosis? @ -Differential Abdominal Pain Men: Appendicitis, cholecystitis, diverticulosis, ischemic bowel, pancreatitis, hepatitis, UTI, gastroenteritis, AAA, incarcerated hernia, bowel obstruction, constipation, inflammatory bowel, hepatitis, peptic ulcer disease, splenic infarction, perforated viscus, testicular torsion, this is not meant to be an all-inclusive list EKG interpreted by me (3pts min.)? @ -[None X-rays interpreted by me (1pt min.)? @ -See chart CT interpreted by me (1pt min.)? @ -See chart U/S interpreted by me (1pt. min.)? @ -[none] What testing was considered but not performed? (CT, X-rays, U/S, labs)? Why? @ [ What meds were considered but not given? Why? @ -[none] Did you discuss the management of the patient with other professionals? @ -[Admitting physician Did you reconcile home meds? @ -[This Was smoking cessation discussed for >3mins.? @ -[none] Was critical care preformed (if so, how long)? @ -[none] Were there social determinants of health that impacted care today? How? (Homelessness, low income, unemployed, alcoholism, drug addiction, transportation, low edu. Level, literacy, decrease access to med. care, halfway, rehab)? @ -[Developmental delay Was there de-escalation of care discussed even if they declined? (Discuss DNR or withdrawal of care, Hospice)? @ -[yes What co-morbidities impacted this encounter? (DM, HTN, Smoking, COPD, CAD, Cancer, CVA, Hep., AIDS, mental health diagnosis, sleep apnea, morbid obesity)? @ -[None Was patient admitted / discharged? @ -[Admitted Undiagnosed new problem with uncertain prognosis? @ -[none] Drug Therapy requiring intensive monitoring for toxicity (Heparin, Nitro, Insulin, Cardizem)? @ -[none] Were any procedures done? @ -[none] Diagnosis/symptom? @ -[Ileus Acute, or Chronic, or Acute on Chronic? @ -[Acute Uncomplicated (without systemic symptoms) or Complicated (systemic symptoms)? @ -[Uncomplicated Side effects of treatment? @ -[none] Exacerbation, Progression, or Severe Exacerbation] @ -[no] Poses a threat to life or bodily function? @ -[No - Lab Data Result diagrams: 10/10/22 09:00 10/10/22 09:00 Lab Results 10/07/22 10/07/22 10/07/22 Range/Units 00:58 01:05 01:05 WBC 7.2 (3.8-10.6) k/uL RBC 3.89 L (4.30-5.90) m/uL Hgb 11.8 L (13.0-17.5) gm/dL Hct 35.6 L (39.0-53.0) % MCV 91.5 (80.0-100.0) fL MCH 30.3 (25.0-35.0) pg MCHC 33.1 (31.0-37.0) g/dL RDW 13.5 (11.5-15.5) % Plt Count 174 (150-450) k/uL MPV 10.5 Neutrophils % 55 % Lymphocytes % 30 % Monocytes % 5 % Eosinophils % 6 % Basophils % 1 % Neutrophils # 4.0 (1.3-7.7) k/uL Lymphocytes # 2.1 (1.0-4.8) k/uL Monocytes # 0.3 (0-1.0) k/uL Eosinophils # 0.4 (0-0.7) k/uL Basophils # 0.1 (0-0.2) k/uL Sodium 139 (137-145) mmol/L Potassium 4.3 (3.5-5.1) mmol/L Chloride 110 H (98-107) mmol/L Carbon Dioxide 23 (22-30) mmol/L Anion Gap 6 mmol/L BUN 20 (9-20) mg/dL Creatinine 0.83 (0.66-1.25) mg/dL Est GFR (CKD-EPI)AfAm >90 (>60 ml/min/1.73 sqM) Est GFR (CKD-EPI)NonAf 87 (>60 ml/min/1.73 sqM) Glucose 83 (74-99) mg/dL POC Glucose (mg/dL) 89 (70-110) mg/dL POC Glu Lay Midwife ID Harman [address] Glu mg/dL Hemoglobin A1c (0.0-6.0) % Calcium 8.6 (8.4-10.2) mg/dL Total Bilirubin 0.6 (0.2-1.3) mg/dL AST 21 (17-59) U/L ALT 20 (4-49) U/L Alkaline Phosphatase 67 (38-126) U/L Total Protein 5.8 L (6.3-8.2) g/dL Albumin 3.3 L (3.5-5.0) g/dL Amylase 117 H (30-110) U/L Lipase 114 (23-300) U/L 10/07/22 Range/Units 01:05 WBC (3.8-10.6) k/uL RBC (4.30-5.90) m/uL Hgb (13.0-17.5) gm/dL Hct (39.0-53.0) % MCV (80.0-100.0) fL MCH (25.0-35.0) pg MCHC (31.0-37.0) g/dL RDW (11.5-15.5) % Plt Count (150-450) k/uL MPV Neutrophils % % Lymphocytes % % Monocytes % % Eosinophils % % Basophils % % Neutrophils # (1.3-7.7) k/uL Lymphocytes # (1.0-4.8) k/uL Monocytes # (0-1.0) k/uL Eosinophils # (0-0.7) k/uL Basophils # (0-0.2) k/uL Sodium (137-145) mmol/L Potassium (3.5-5.1) mmol/L Chloride (98-107) mmol/L Carbon Dioxide (22-30) mmol/L Anion Gap mmol/L BUN (9-20) mg/dL Creatinine (0.66-1.25) mg/dL Est GFR (CKD-EPI)AfAm (>60 ml/min/1.73 sqM) Est GFR (CKD-EPI)NonAf (>60 ml/min/1.73 sqM) Glucose (74-99) mg/dL POC Glucose (mg/dL) (70-110) mg/dL POC Glu Lay Midwife ID Estimated Ave Glu mg/dL 106 Hemoglobin A1c 5.3 (0.0-6.0) % Calcium (8.4-10.2) mg/dL Total Bilirubin (0.2-1.3) mg/dL AST (17-59) U/L ALT (4-49) U/L Alkaline Phosphatase (38-126) U/L Total Protein (6.3-8.2) g/dL Albumin (3.5-5.0) g/dL Amylase (30-110) U/L Lipase (23-300) U/L Disposition Clinical Impression: Ileus Disposition: ADMITTED IP TO THIS HOSP Condition: Fair Is patient prescribed a controlled substance at d/c from ED?: No
--- NOTE | 2022-10-07 01:46 | XR ---
EXAMINATION TYPE: XR KUB DATE OF EXAM: 10/07/2022 COMPARISON: NONE HISTORY: Abdominal pain TECHNIQUE: 2 views FINDINGS: There is no sign of intestinal obstruction or pneumoperitoneum. Fecal pattern is fairly nor mal. There is increased gas in the large and small bowel. IMPRESSION: There is increased intestinal gas that could be air swallowing. No free air. I do not dewey pect bowel obstruction.
[2022-10-07 01:53] LABS: Basophils # (A) 0.1 k/uL (0-0.2); Basophils % (A) 1 %; Eosinophils # (A) 0.4 k/uL (0-0.7); Eosinophils % (A) 6 %; HCT 35.6 % (39.0-53.0); HGB 11.8 gm/dL (13.0-17.5); Lymphocytes # (A) 2.1 k/uL (1.0-4.8); Lymphocytes % (A) 30 %; MCH 30.3 pg (25.0-35.0); MCHC 33.1 g/dL (31.0-37.0); MCV 91.5 fL (80.0-100.0); Mean Platelet Volume 10.5; Monocytes # (A) 0.3 k/uL (0-1.0); Monocytes % (A) 5 %; Neutrophils % (A) 55 %; Platelet Count 174 k/uL (150-450); RBC 3.89 m/uL (4.30-5.90); RDW 13.5 % (11.5-15.5); WBC 7.2 k/uL (3.8-10.6)
[2022-10-07 02:13] LABS: ALT 20 U/L (4-49); AST 21 U/L (17-59); African American GFR (CKD) >90 (>60 ml/min/1.73 sqM); Albumin 3.3 g/dL (3.5-5.0); Alkaline Phosphatase 67 U/L (38-126); Amylase 117 U/L (30-110); Anion Gap 6 mmol/L; Blood Urea Nitrogen 20 mg/dL (9-20); Calcium 8.6 mg/dL (8.4-10.2); Carbon Dioxide 23 mmol/L (22-30); Chloride 110 mmol/L (98-107); Glucose 83 mg/dL (74-99); Lipase 114 U/L (23-300); Non-African American GFR(CKD) 87 (>60 ml/min/1.73 sqM); Potassium 4.3 mmol/L (3.5-5.1); Sodium 139 mmol/L (137-145); Total Bilirubin 0.6 mg/dL (0.2-1.3); Total Protein 5.8 g/dL (6.3-8.2)
--- NOTE | 2022-10-07 04:53 | CT ---
EXAMINATION TYPE: CT abdomen pelvis wo con DATE OF EXAM: 10/07/2022 COMPARISON: 07/28/2020 HISTORY: AMS ABD PAIN CT DLP: 461.9 mGycm Automated exposure control for dose reduction was used. Images obtained from the diaphragm to the floor the pelvis with no contrast. There is some interstitial density and subsegmental atelectasis at the lung bases. No pleural effusio n. Heart size is normal. No pericardial effusion. Liver spleen appear intact. Stomach appears intact. The bile ducts are not dilated. Gallbladder appea rs normal. There is no adrenal mass. There are bilateral renal cysts that measure up to 5 cm. No hydronephrosis. Ureters are not dilated. No retroperitoneal adenopathy. There is fluid levels in the large bowel priscila n to the rectum. Bladder distends smoothly. No pelvic mass. No inguinal hernia. No free fluid in the pelvis. There is right hip nailing. There is no ascites or free air. No central bowel obstruction. There is gaseous distention of the lar ge bowel. There is second-degree L4-5 spondylolisthesis with bilateral L4 spondylolysis. The bony pelvis is int act the hip joints are intact. IMPRESSION: Gas distended large bowel with fluid levels and consistent with some ileus and diarrhea. This appears new compared to old exam. Stable L4-5 second-degree spondylolisthesis.
[2022-10-07] MEDS ORDERED: NALOXONE 0.4 MG/ML 1 ML VIAL IV PRN (05:25)
[2022-10-07] MEDS: FAMOTIDINE 20 MG/2 ML VIAL IV SCH ×2 (05:41→15:52)
[2022-10-07] MEDS: SODIUM CHLORIDE 0.9% 1,000 ML IV SCH ×3 (05:41→23:15)
[2022-10-07] MEDS ORDERED: ONDANSETRON 4 MG/2 ML VIAL IVP PRN (05:45)
--- NOTE | 2022-10-07 05:45 | P.HPIM ---
History of Present Illness H&P Date: 10/07/22 Chief Complaint: vomiting 72 year old male with developmental delay patient is an [facility] resident , comes in today for repeated vomiting. patient unable to provide any meaningful history , he is accompanied by home mortgage disclosure act specialist , who reports that he had normal meal earlier today , but then around 8 pm he started having greenish vomiting, no food contents. he also has been having frequent loose stools , non bloody. no report of fever, he does not seem to be in any pain or distress. this has not happened any time recently , and no report of other resident with gastroenteritis type symptoms. patient at baseline would walk with assistance . he is very pleasant , but seems to be withdrawn today CT abd showed large bowel ileus with gas and fluid level blood work over all unremarkable , chronic anemia Review of Systems ROS unobtainable: due to mental status Past Medical History Past Medical History: Cancer Additional Past Medical History / Comment(s): skin CA, mentally disabled History of Any Multi-Drug Resistant Organisms: None Reported Past Surgical History: No Surgical Hx Reported Additional Past Surgical History / Comment(s): skin cancer removed from face Past Anesthesia/Blood Transfusion Reactions: No Reported Reaction Past Psychological History: No Psychological Hx Reported Smoking Status: Never smoker Past Alcohol Use History: None Reported Past Drug Use History: None Reported Medications and Allergies Home Medications Medication Instructions Recorded Confirmed Type Aspirin EC [Ecotrin Low Dose] 81 mg PO DAILY@0700 07/27/20 04/22/21 History Atorvastatin [Lipitor] 20 mg PO HS@199907/27/20 04/22/21 History LORazepam [Ativan] 1 mg PO BID PRN 07/27/20 04/22/21 History LORazepam [Ativan] 1 mg PO TID@0700,1599,199907/27/20 04/22/21 History Lactulose 10 gm PO DAILY@1600 07/27/20 04/22/21 History Nasal Decongestant 2 spray EA NOSTRIL Q12H PRN 07/27/20 04/22/21 History Secura Extra Cream 1 applic TOPICAL DAILY PRN 07/27/20 04/22/21 History Acyclovir 5% Oint [Zovirax Oint] 1 applic TOPICAL 5XD PRN 04/22/21 04/22/21 History Simply Thick 1 dose PO QID@07,12,16,20 04/22/21 04/22/21 History Melatonin 3 mg PO HS PRN #30 tablet 04/25/21 Rx cefUROXime axetiL [Ceftin] 500 mg PO BID #6 tab 04/25/21 Rx Neomycin/Bacitracin/Polymyxinb 1 applic TOPICAL BID #30 gm 04/27/21 Rx [Neosporin Ointment] Fluconazole [Diflucan] 150 mg PO ONCE #7 tab 04/30/21 Rx Nystatin 100,000 Unit/gm Powd 1 applic TOPICAL BID #30 gram 04/30/21 Rx [Mycostatin Powder] Allergies Allergy/AdvReac Type Severity Reaction Status Date / Time No Known Allergies Allergy Verified 10/07/22 01:01 Physical Exam Vitals: Vital Signs Temp Pulse Resp BP Pulse Ox 10/07/22 00:55 98.4 F 71 16 120/83 98 Intake and Output 10/06/22 10/06/22 10/07/22 14:59 22:59 06:59 Other: Weight 62.142 kg Constitutional: No acute distress,uncooperative , withdrawn in position Eyes: Anicteric sclerae, moist conjunctiva, Pupils equal round reactive to light ENMT: NC/AT refuses to open mouth Neck: resists exam Lungs: patient is not taking deep breaths , otherwise no wheezing or rhonchi Cardiovascular: Heart regular in rate and rhythm, No murmurs, gallops, or rubs No peripheral edema Abdominal: patiient resists exam, he punches and grabs limited exam , Soft , no distention Nontender, no guarding, rebound or rigidity Abdomen moving with respiration could not listen to bowel sounds patient resists Skin: Normal temperature, tone, texture, turgor Extremities: Radial pulses intact and symmetrical No calf tenderness Psychiatric: Alert , uncooperative Neuro could not assess patient uncooperative Results CBC & Chem 7: 10/07/22 01:05 10/07/22 01:05 Labs: Abnormal Lab Results - Last 24 Hours (Table) 10/07/22 10/07/22 Range/Units 01:05 01:05 RBC 3.89 L (4.30-5.90) m/uL Hgb 11.8 L (13.0-17.5) gm/dL Hct 35.6 L (39.0-53.0) % Chloride 110 H (98-107) mmol/L Total Protein 5.8 L (6.3-8.2) g/dL Albumin 3.3 L (3.5-5.0) g/dL Amylase 117 H (30-110) U/L Assessment and Plan Assessment: ileus NPO supportive care IVF hydration with saline check C diff attempt to insert NG tube Gen surg consult monitor renal function and electorlytes zofran PRN for nausea and vomiting chronic anemia no report of GI bleeding No code DVT PPX heparin sc tid
[2022-10-07] MEDS: HEPARIN SODIUM,PORCINE/PF 5,000 UNIT/0.5 ML SYRINGE SQ SCH ×3 (10:58→23:13)
--- NOTE | 2022-10-07 12:32 | P.GSCN ---
History of Present Illness Consult date: 10/07/22 History of present illness: CHIEF COMPLAINT: Vomiting HISTORY OF PRESENT ILLNESS: This is a 72-year-old male from an [facility] home who presented with vomiting. Patient is nonverbal and unable to get history from patient. Per chart patient was brought in by the caregiver who had reported vomiting started around 8:00 last night. Patient had been eating normally earlier in the day. Patient had recently been started by his physician on Imodium for multiple softer bowel movements. Computed tomography scan of the abdomen and pelvis had shown evidence of an ileus. Surgical service has been consulted in regards to ileus. Patient seen and examined with Dr. tai PAST MEDICAL HISTORY: Mentally disabled. Skin cancer of the face. PAST SURGICAL HISTORY: See below MEDICATIONS: See below ALLERGIES: See below SOCIAL HISTORY: No illicit drug use. REVIEW OF SYSTEMS: CONSTITUTIONAL: Denies fever or chills. HEENT: Denies blurred vision, vision changes, or eye pain. Denies hemoptysis CARDIOVASCULAR: Denies chest pain or pressure. RESPIRATORY: No shortness of breath. GASTROINTESTINAL: See HPI for pertinent findings HEMATOLOGIC: Denies bleeding disorders. GENITOURINARY: Denies any blood in urine or increased urinary frequency. SKIN: Denies pruitis. Denies rash. PHYSICAL EXAM: VITAL SIGNS: Reviewed GENERAL: Well-developed in no acute distress. HEENT: No sclera icterus. Extraocular movements grossly intact. Moist buccal mucosa. Head is atraumatic, normocephalic. No nasal drainage. ABDOMEN: Soft. Nondistended. Nontender NEUROLOGIC: Awake. Nonverbal. LABORATORY DATA: WBC is 7.2 Hgb 11.8 platelets 174 Sodium 139 potassium is 4.3 creatinine 0.83 Liver enzymes normal lipase 114 IMAGING: KUB there is increased intestinal gas that could be air swallowing. No free air. Do not suspect bowel obstruction. Computed tomography scan abdomen and pelvis gas distended large bowel with fluid levels and consistent with some ileus and diarrhea. Stable L4 to 5 second degree spondylolisthesis. ASSESSMENT: 1. Ileus 2. Vomiting likely due to ileus PLAN: -Continue supportive care -Start clear liquid diet -Check urinalysis to rule out a UTI as a contributing factor to cause the ileus -Continue IV fluids -Continue antiemetics as needed Thank you for this consultation Physician Auto Apprentice Mechanic note has been reviewed by physician. Signing provider agrees with the documented findings, assessment, and plan of care. Past Medical History Past Medical History: Cancer Additional Past Medical History / Comment(s): skin CA, mentally disabled History of Any Multi-Drug Resistant Organisms: None Reported Past Surgical History: No Surgical Hx Reported Additional Past Surgical History / Comment(s): skin cancer removed from face Past Anesthesia/Blood Transfusion Reactions: No Reported Reaction Past Psychological History: No Psychological Hx Reported Smoking Status: Never smoker Past Alcohol Use History: None Reported Past Drug Use History: None Reported Medications and Allergies Home Medications Medication Instructions Recorded Confirmed Type Aspirin EC [Ecotrin Low Dose] 81 mg PO DAILY@0700 07/27/20 10/07/22 History Atorvastatin [Lipitor] 20 mg PO HS@199907/27/20 10/07/22 History LORazepam [Ativan] 1 mg PO BID PRN 07/27/20 10/07/22 History LORazepam [Ativan] 1 mg PO TID@0700,1600,199907/27/20 10/07/22 History Lactulose 10 gm PO DAILY@1600 07/27/20 10/07/22 History Simply Thick 1 dose PO DIRECTED 04/22/21 10/07/22 History Melatonin 3 mg PO HS PRN #30 tablet 04/25/21 10/07/22 Rx Cetirizine HCl 10 mg PO DAILY@0700 10/07/22 10/07/22 History Oxymetazoline 0.05% Nasl [place] 2 spray EA NOSTRIL Q12H PRN 10/07/22 10/07/22 History [Afrin 0.05% Nasal [place]] Tamsulosin [Flomax] 0.4 mg PO DAILY@0700 10/07/22 10/07/22 History diphenhydrAMINE HCL [Benadryl] 25 mg PO HS PRN 10/07/22 10/07/22 History Allergies Allergy/AdvReac Type Severity Reaction Status Date / Time No Known Allergies Allergy Verified 10/07/22 09:24 Surgical - Exam Vital Signs Temp Pulse Resp BP Pulse Ox 98.4 F 71 16 120/83 98 10/07/22 00:55 10/07/22 00:55 10/07/22 00:55 10/07/22 00:55 10/07/22 00:55 Results - Labs 10/07/22 01:05 10/07/22 01:05 Abnormal Lab Results - Last 24 Hours (Table) 10/07/22 10/07/22 Range/Units 01:05 01:05 RBC 3.89 L (4.30-5.90) m/uL Hgb 11.8 L (13.0-17.5) gm/dL Hct 35.6 L (39.0-53.0) % Chloride 110 H (98-107) mmol/L Total Protein 5.8 L (6.3-8.2) g/dL Albumin 3.3 L (3.5-5.0) g/dL Amylase 117 H (30-110) U/L Diabetes panel 10/07/22 Range/Units 01:05 Sodium 139 (137-145) mmol/L Potassium 4.3 (3.5-5.1) mmol/L Chloride 110 H (98-107) mmol/L Carbon Dioxide 23 (22-30) mmol/L BUN 20 (9-20) mg/dL Creatinine 0.83 (0.66-1.25) mg/dL Glucose 83 (74-99) mg/dL Calcium 8.6 (8.4-10.2) mg/dL AST 21 (17-59) U/L ALT 20 (4-49) U/L Alkaline Phosphatase 67 (38-126) U/L Total Protein 5.8 L (6.3-8.2) g/dL Albumin 3.3 L (3.5-5.0) g/dL Calcium panel 10/07/22 Range/Units 01:05 Calcium 8.6 (8.4-10.2) mg/dL Albumin 3.3 L (3.5-5.0) g/dL Pituitary panel 10/07/22 Range/Units 01:05 Sodium 139 (137-145) mmol/L Potassium 4.3 (3.5-5.1) mmol/L Chloride 110 H (98-107) mmol/L Carbon Dioxide 23 (22-30) mmol/L BUN 20 (9-20) mg/dL Creatinine 0.83 (0.66-1.25) mg/dL Glucose 83 (74-99) mg/dL Calcium 8.6 (8.4-10.2) mg/dL Adrenal panel 10/07/22 Range/Units 01:05 Sodium 139 (137-145) mmol/L Potassium 4.3 (3.5-5.1) mmol/L Chloride 110 H (98-107) mmol/L Carbon Dioxide 23 (22-30) mmol/L BUN 20 (9-20) mg/dL Creatinine 0.83 (0.66-1.25) mg/dL Glucose 83 (74-99) mg/dL Calcium 8.6 (8.4-10.2) mg/dL Total Bilirubin 0.6 (0.2-1.3) mg/dL AST 21 (17-59) U/L ALT 20 (4-49) U/L Alkaline Phosphatase 67 (38-126) U/L Total Protein 5.8 L (6.3-8.2) g/dL Albumin 3.3 L (3.5-5.0) g/dL
--- NOTE | 2022-10-07 16:54 | P.PN ---
Subjective Progress Note Date: 10/07/22 Hospital course: Patient is a very pleasant 72-year-old male with a past medical history of developmental delay currently resides in adult foster care. He presented to the emergency department with [facility] home care provider overnight secondary to reports of intractable vomiting accompanied by frequent loose stools. Patient underwent full evaluation in the emergency department. Labs completed and reviewed. CBC consistent with normocytic anemia with stable hemoglobin of 11.8. BMP was unremarkable. Liver profile normal findings with the exception of mild hypoalbuminemia with albumin of 3.3. Amylase elevated at 117. KUB showing increased intestinal gas with no signs of intestinal obstruction or pneumoperitoneum. CT abdomen and pelvis revealed a large bowel ileus with report s of gas distended large bowel with fluid levels consistent with some ileus and diarrhea Physical exam: Patient seen and fully evaluated at the bedside. Patient is nonverbal at baseline. Appears to be resting comfortably. RN reports patient has had no further episodes of vomiting. RN was instructed that as long as patient has no further episodes of vomiting we will continue with current plan of care with IV fluid hydration and advance diet as recommended by general surgery team. If vomiting returns patient may likely need NG tube placement. Vital signs reviewed and stable. General: Nontoxic, no distress and appears stated age. Derm: Skin warm and dry, normal coloration for ethnicity. Head: Atraumatic, normocephalic and symmetric. Eyes: EOMs intact, no lid lag, and anicteric sclera Mouth: no lip lesions, mucus membranes moist Cardiovascular: regular rate and rhythm with normal S1S2, no murmur, positive posterior tibial pulses bilaterally, and cap refill < 2 seconds. Lungs: Respirations even, regular, and unlabored on room air. Lungs CTA bilaterally, no rhonchi, no rales, no wheezing, and no accessory muscle usage. Abdominal: soft, nontender to palpation, no guarding, no appreciable organomegaly Ext: Upper and lower extremities contracted Neuro: Patient with developmental delay, nonverbal at baseline. Assessment and Plan of Care: Large bowel ileus Intractable vomiting, secondary to above -NPO to allow for bowel rest -IV fluid hydration -Patient will need NG tube placement if vomiting returns -General surgery consulted, appreciate further recommendations. -Symptomatic care and pain management Normocytic anemia -Baseline hemoglobin 13. Hemoglobin currently stable at 11.8. -No signs of bleeding noted. We will continue to monitor with repeat a.m. labs and watch for any signs of bleeding. CODE STATUS: DO NOT RESUSCITATE/DO NOT INTUBATE DVT prophylaxis: Heparin Discussed with: Patient and RN Anticipated discharge date: Clinical course to determine Anticipated discharge place: Return to [facility] home A total of 36 minutes was spent on the care of this complex patient more than 50% of the time was spent in counseling and care coordination. I reviewed the documentation as provided by the KERWIN above, who is the original author of this note. I agree with the documented assessment and plan, with the following changes: none Objective - Vital Signs Vital signs: Vital Signs Temp 98.4 F 10/07/22 00:55 Pulse 55 L 10/07/22 06:03 Resp 16 10/07/22 06:03 BP 117/80 10/07/22 06:03 Pulse Ox 98 10/07/22 06:03 FiO2 Intake & Output 10/06/22 10/07/22 10/07/22 18:59 06:59 18:59 Weight 62.142 kg - Labs CBC & Chem 7: 10/07/22 01:05 10/07/22 01:05 Labs: Abnormal Lab Results - Last 24 Hours (Table) 10/07/22 10/07/22 Range/Units 01:05 01:05 RBC 3.89 L (4.30-5.90) m/uL Hgb 11.8 L (13.0-17.5) gm/dL Hct 35.6 L (39.0-53.0) % Chloride 110 H (98-107) mmol/L Total Protein 5.8 L (6.3-8.2) g/dL Albumin 3.3 L (3.5-5.0) g/dL Amylase 117 H (30-110) U/L
[2022-10-07 17:28] LABS: Appearance,Urine Cloudy (Clear); Bacteria,Urine Rare /hpf; Bilirubin,Urine Negative (Negative); Blood,Urine Negative (Negative); Color,Urine Yellow; Glucose,Urine (UA) Negative (Negative); Ketones,Urine 1+ (Negative); Leukocyte Esterase,Urine Small (Negative); Mucus,Urine Rare /hpf; Nitrite,Urine Negative (Negative); Protein,Urine Negative (Negative); RBC,Urine 1 /hpf (0-5); Squamous Epithelial Cell,Urine <1 /hpf (0-4); Urobilinogen,Urine <2.0 mg/dL (<2.0); WBC,Urine 20 /hpf (0-5)
[2022-10-07 20:37] LABS: Glucose,Whole Blood 71 mg/dL (70-110)
[2022-10-08] MEDS: FAMOTIDINE 20 MG/2 ML VIAL IV SCH ×2 (05:52→18:06)
[2022-10-08 10:52] LABS: HCT 36.2 % (39.6-50.0); HGB 11.6 g/dL (13.0-17.0); MCH 29.8 pg (27.0-32.0); MCV 93.1 fL (80.0-97.0); NRBC Per 100 WBC 0 /100 WBCS (0.0-0.0); Platelet Count 165 X 10*3/uL (140-440); RBC 3.89 X 10*6/uL (4.40-5.60); RDW 13.9 % (11.5-14.5); WBC 5.94 X 10*3/uL (4.50-10.00)
[2022-10-08] MEDS: HEPARIN SODIUM,PORCINE/PF 5,000 UNIT/0.5 ML SYRINGE SQ SCH ×3 (10:57→23:48)
[2022-10-08 11:17] LABS: Albumin 3.4 g/dL (3.8-4.9); Albumin/Globulin Ratio 1.79 (1.60-3.17); Anion Gap 11.4 mmol/L (10.00-18.00); BUN/Creat Ratio 19.63 Ratio (12.00-20.00); Blood Urea Nitrogen 15.7 mg/dL (9.0-27.0); Calcium 8.8 mg/dL (8.7-10.3); Carbon Dioxide 19.6 mmol/L (20.0-27.5); Globulin 1.9 g/dL (1.6-3.3); Magnesium 1.9 mg/dL (1.5-2.4); Potassium 4.5 mmol/L (3.5-5.5); Total Bilirubin 0.8 mg/dL (0.30-1.20); Total Protein 5.3 g/dL (6.2-8.2)
[2022-10-08 11:25] VITALS: BMI 20.2
[2022-10-08] MEDS: DOCUSATE 100 MG CAP PO SCH ×2 (13:31→20:10)
--- NOTE | 2022-10-08 13:54 | P.PN ---
Subjective Progress Note Date: 10/08/22 CHIEF COMPLAINT: Vomiting HISTORY OF PRESENT ILLNESS: Patient found to have evidence of abdominal ileus. His vomiting has resolved. No bowel movement. Urine culture pending. Need to rule out UTI. Currently on a clear liquid diet. Patient is not eating. Her sister patient does not do well out of his home environment. And may be the reason why his oral intake is decreased. PHYSICAL EXAM: VITAL SIGNS: Reviewed. GENERAL: Well-developed in no acute distress. HEENT: No sclera icterus. Extraocular movements grossly intact. Moist buccal mucosa. Head is atraumatic, normocephalic. ABDOMEN: Soft. Nondistended. Nontender. NEUROLOGIC: Alert and oriented. Cranial nerves II through XII grossly intact. ASSESSMENT: 1. Ileus 2. Vomiting likely due to ileus PLAN: -No surgical intervention planned -Continue conservative management -Awaiting on urine culture to rule out UTI -Try to increase activity level -Stool softener added Physician Psych Arnp note has been reviewed by physician. Signing provider agrees with the documented findings, assessment, and plan of care. Objective - Vital Signs Vital signs: Vital Signs Temp 98.8 F 10/08/22 13:03 Pulse 73 10/08/22 13:03 Resp 18 10/08/22 13:03 BP 128/71 10/08/22 13:03 Pulse Ox 97 10/07/22 15:00 FiO2 Intake & Output 10/07/22 10/08/22 10/08/22 18:59 06:59 18:59 Intake Total 160 Output Total 600 Balance -440 Weight 62.142 kg 62.142 kg Intake: Oral 160 Output: Urine 600 Other: Voiding Method Diaper Diaper Diaper Incontinent Incontinent Incontinent # Voids 1 1 - Labs CBC & Chem 7: 10/08/22 05:22 10/08/22 05:22 Labs: Abnormal Lab Results - Last 24 Hours (Table) 10/07/22 10/08/22 10/08/22 Range/Units 09:52 05:22 05:22 RBC 3.89 L (4.40-5.60) X 10*6/uL Hgb 11.6 L (13.0-17.0) g/dL Hct 36.2 L (39.6-50.0) % MPV 13.0 H (9.5-12.2) fL Chloride 111 H (96-109) mmol/L Carbon Dioxide 19.6 L (20.0-27.5) mmol/L Glucose 63 L (70-110) mg/dL Total Protein 5.3 L (6.2-8.2) g/dL Albumin 3.4 L (3.8-4.9) g/dL Urine Ketones 1+ H (Negative) Ur Leukocyte Esterase Small H (Negative) Urine WBC 20 H (0-5) /hpf Urine Bacteria Rare H (None) /hpf Urine Mucus Rare H (None) /hpf Microbiology - Last 24 Hours (Table) 10/07/22 09:52 Urine Culture - Preliminary Urine,Clean Catch
[2022-10-08] MEDS ORDERED: LACTATED RINGERS 1,000 ML IV SCH (14:15)
[2022-10-08] MEDS ORDERED: DEXTROSE 50% SYRINGE 50 ML IVP PRN ×2 (14:17)
[2022-10-08 14:26] LABS: Glucose,Whole Blood 60 mg/dL (70-110)
--- NOTE | 2022-10-08 14:26 | P.PN ---
Subjective Progress Note Date: 10/08/22 Hospital course: Patient is a very pleasant 72-year-old male with a past medical history of developmental delay currently resides in adult foster care. He presented to the emergency department with [facility] home care provider overnight secondary to reports of intractable vomiting accompanied by frequent loose stools. Patient underwent full evaluation in the emergency department. Labs completed and reviewed. CBC consistent with normocytic anemia with stable hemoglobin of 11.8. BMP was unremarkable. Liver profile normal findings with the exception of mild hypoalbuminemia with albumin of 3.3. Amylase elevated at 117. KUB showing increased intestinal gas with no signs of intestinal obstruction or pneumoperitoneum. CT abdomen and pelvis revealed a large bowel ileus with report s of gas distended large bowel with fluid levels consistent with some ileus and diarrhea. Patient was admitted under services of consultation to general surgery. Physical exam: Patient seen and fully evaluated at the bedside this morning. Patient is nonverbal and remains at reported baseline. Pt appears to be resting comfortably and has had no further episodes of vomiting reported by RN. Phy sical exam completed. Bowel sounds 4 quadrants. Patient appeared to have discomfort in left lower quadrant upon palpation as when this area was palpated patient swung and hit provider. Morning labs reviewed and stable with CBC showing stable normocytic anemia with hemoglobin of 11.6. BMP resulting with hypoglycemia with blood glucose of 63. Normal saline discontinued and patient placed on D5.45 with POC glucose checks every 4 hours. Vital signs reviewed and stable. General: Nontoxic, no distress and appears stated age. Derm: Skin warm and dry, normal coloration for ethnicity. Head: Atraumatic, normocephalic and symmetric. Eyes: EOMs intact, no lid lag, and anicteric sclera Mouth: no lip lesions, mucus membranes moist Cardiovascular: regular rate and rhythm with normal S1S2, no murmur, positive posterior tibial pulses bilaterally, and cap refill < 2 seconds. Lungs: Respirations even, regular, and unlabored on room air. Lungs CTA bilaterally, no rhonchi, no rales, no wheezing, and no accessory muscle usage. Abdominal: soft, nontender to palpation, no guarding, no appreciable organomegaly Ext: Upper and lower extremities contracted Neuro: Patient with developmental delay, nonverbal at baseline. Assessment and Plan of Care: Large bowel ileus Intractable vomiting, secondary to above -Gen. surgery increase diet to clear liquids with nectar thick fluids -IV fluid hydration -Patient will need NG tube placement if vomiting returns -General surgery following, appreciate further recommendations. -Symptomatic care and pain management Hypoglycemia -Normal saline discontinued and patient started on D5.45 at 75 mL's per hour. Patient placed on glycemic protocol with POC glucose checks every 4 hours. -Hypoglycemia likely secondary to poor oral intake. Normocytic anemia -Baseline hemoglobin 13. Hemoglobin currently stable at 11.8. -No signs of bleeding noted. We will continue to monitor with repeat a.m. labs and watch for any signs of bleeding. Developmental delay -Provide assistance as needed -Fall precautions CODE STATUS: DO NOT RESUSCITATE/DO NOT INTUBATE DVT prophylaxis: Heparin Discussed with: Patient and RN Anticipated discharge date: Clinical course to determine Anticipated discharge place: Return to [facility] home A total of 35 minutes was spent on the care of this complex patient more than 50% of the time was spent in counseling and care coordination. I reviewed the documentation as provided by the KERWIN above, who is the original a uthor of this note. I agree with the documented assessment and plan, with the following changes: none Objective - Vital Signs Vital signs: Vital Signs Temp 98.4 F 10/08/22 07:39 Pulse 69 10/08/22 07:39 Resp 16 10/08/22 07:39 BP 114/68 10/08/22 07:39 Pulse Ox 97 10/07/22 15:00 FiO2 Intake & Output 10/07/22 10/08/22 10/08/22 18:59 06:59 18:59 Intake Total 160 Output Total 600 Balance -440 Weight 62.142 kg Intake: Oral 160 Output: Urine 600 Other: Voiding Method Diaper Diaper Incontinent Incontinent # Voids 1 - Labs CBC & Chem 7: 10/08/22 05:22 10/08/22 05:22 Labs: Abnormal Lab Results - Last 24 Hours (Table) 10/07/22 Range/Units 09:52 Urine Ketones 1+ H (Negative) Ur Leukocyte Esterase Small H (Negative) Urine WBC 20 H (0-5) /hpf Urine Bacteria Rare H (None) /hpf Urine Mucus Rare H (None) /hpf Microbiology - Last 24 Hours (Table) 10/07/22 09:52 Urine Culture - Preliminary Urine,Clean Catch
[2022-10-08] MEDS: DEXTROSE 5%-0.45% NACL 1,000 ML IV SCH (14:39)
[2022-10-08 15:27] LABS: Glucose,Whole Blood 124 mg/dL (70-110)
[2022-10-08 20:04] LABS: Glucose,Whole Blood 124 mg/dL (70-110)
[2022-10-08] MEDS ORDERED: LACTULOSE 20 GM/30 ML CUP PO ONE (20:14)
[2022-10-09] LABS: Glucose,Whole Blood 104 mg/dL (70-110)
[2022-10-09 03:59] LABS: Glucose,Whole Blood 98 mg/dL (70-110)
[2022-10-09] MEDS: DEXTROSE 5%-0.45% NACL 1,000 ML IV SCH ×2 (04:02→16:03)
[2022-10-09] MEDS: FAMOTIDINE 20 MG/2 ML VIAL IV SCH ×2 (05:34→17:53)
[2022-10-09 07:29] LABS: Glucose,Whole Blood 111 mg/dL (70-110)
[2022-10-09] MEDS: HEPARIN SODIUM,PORCINE/PF 5,000 UNIT/0.5 ML SYRINGE SQ SCH ×3 (09:23→23:58)
[2022-10-09] MEDS: DOCUSATE 100 MG CAP PO SCH (09:24)
[2022-10-09] MEDS ORDERED: bisacodyL 10 MG SUPP RECTAL STA (09:25)
[2022-10-09 11:08] LABS: Glucose,Whole Blood 92 mg/dL (70-110)
--- NOTE | 2022-10-09 14:47 | P.PN ---
Subjective Progress Note Date: 10/09/22 CHIEF COMPLAINT: Vomiting HISTORY OF PRESENT ILLNESS: Patient found to have evidence of abdominal ileus. Patient has had no further vomiting. No evidence of abdominal pain. Still has not had a bowel movement. Has been just picking at the clear liquid diet. Per nursing staff patient sister has reported the patient does not do well out of his home environment. Urine culture growing gram-negative bacilli. Patient has evidence of a UTI. Patient has been refusing stool softener and lactulose. PHYSICAL EXAM: VITAL SIGNS: Reviewed. GENERAL: Well-developed in no acute distress. HEENT: No sclera icterus. Extraocular movements grossly intact. Moist buccal mucosa. Head is atraumatic, normocephalic. ABDOMEN: Soft. Nondistended. Nontender. NEUROLOGIC: Awake. Nonverbal ASSESSMENT: 1. Ileus likely secondary to UTI 2. Vomiting likely due to ileus 3. UTI PLAN: -Started Rocephin for UTI -No surgical intervention planned -Continue conservative management -Try to increase activity level -Dulcolax suppository ordered to help stimulate bowel activity Physician Seed Sales Manager note has been reviewed by physician. Signing provider agrees with the documented findings, assessment, and plan of care. Objective - Vital Signs Vital signs: Vital Signs Temp 97.5 F L 10/09/22 11:35 Pulse 75 10/09/22 11:35 Resp 16 10/09/22 11:35 BP 148/68 10/09/22 11:35 Pulse Ox 98 10/09/22 11:35 FiO2 Intake & Output 10/08/22 10/09/22 10/09/22 18:59 06:59 18:59 Intake Total 60 0 Balance 60 0 Weight 62.142 kg Intake: Oral 60 0 Other: Voiding Method Diaper Diaper Diaper Incontinent # Voids 3 1 2 # Bowel Movements 1 - Labs CBC & Chem 7: 10/08/22 05:22 10/08/22 05:22 Labs: Abnormal Lab Results - Last 24 Hours (Table) 10/08/22 10/08/22 10/09/22 Range/Units 15:26 20:03 07:27 POC Glucose (mg/dL) 124 H 124 H 111 H (70-110) mg/dL Microbiology - Last 24 Hours (Table) 10/07/22 09:52 Urine Culture - Preliminary Urine,Clean Catch Gram Neg Bacilli
--- NOTE | 2022-10-09 16:31 | P.PN ---
Subjective Progress Note Date: 10/09/22 Hospital course: Patient is a very pleasant 72-year-old male with a past medical history of developmental delay currently resides in adult foster care. He presented to the emergency department with [facility] home care provider overnight secondary to reports of intractable vomiting accompanied by frequent loose stools. Patient underwent full evaluation in the emergency department. Labs completed and reviewed. CBC consistent with normocytic anemia with stable hemoglobin of 11.8. BMP was unremarkable. Liver profile normal findings with the exception of mild hy poalbuminemia with albumin of 3.3. Amylase elevated at 117. Urinalysis questionable with 20 WBCs, patient showing no other signs of infection at this time will hold off on antibiotics. KUB showing increased intestinal gas with no signs of intestinal obstruction or pneumoperitoneum. CT abdomen and pelvis revealed a large bowel ileus with reports of gas distended large bowel with fluid levels consistent with some ileus and diarrhea. Patient was admitted under our services with consultation to general surgery. Physical exam: Patient seen and fully evaluated at the bedside this morning. He appears to be resting comfortably. Showing no signs of acute distress. Blood sugars have been stable on D5.45 infusion, however patient continues to have minimal oral intake. Patient started on full liquid diet per general surgery team and we will continue to monitor. Patient has not had a bowel movement since admission, suppository administered this morning. Will monitor for results. Vital signs reviewed and stable. General: Nontoxic, no distress and appears stated age. Derm: Skin warm and dry, normal coloration for ethnicity. Head: Atraumatic, normocephalic and symmetric. Eyes: EOMs intact, no lid lag, and anicteric sclera Mouth: no lip lesions, mucus membranes moist Cardiovascular: regular rate and rhythm with normal S1S2, no murmur, positive posterior tibial pulses bilaterally, and cap refill < 2 seconds. Lungs: Respirations even, regular, and unlabored on room air. Lungs CTA bilaterally, no rhonchi, no rales, no wheezing, and no accessory muscle usage. Abdominal: soft, nontender to palpation, no guarding, no appreciable or ganomegaly Ext: Upper and lower extremities contracted Neuro: Patient with developmental delay, nonverbal at baseline. Assessment and Plan of Care: Large bowel ileus Intractable vomiting, secondary to above -Gen. surgery increase diet to clear liquids with nectar thick fluids -IV fluid hydration -Patient will need NG tube placement if vomiting returns -General surgery following, appreciate further recommendations. -Symptomatic care and pain management UTI -Urinalysis was questionable with only 20 WBCs, however preliminary urine culture positive for gram-negative bacilli, patient started on Rocephin at this time pending final culture and sensitivity report. Hypoglycemia -Normal saline discontinued and patient started on D5.45 at 75 mL's per hour. Patient placed on glycemic protocol with POC glucose checks every 6 hours. -Hypoglycemia likely secondary to poor oral intake. Normocytic anemia -Baseline hemoglobin 13. Hemoglobin currently stable at 11.8. -No signs of bleeding noted. We will continue to monitor with repeat a.m. labs and watch for any signs of bleeding. Developmental delay -Provide assistance as needed -Fall precautions CODE STATUS: DO NOT RESUSCITATE/DO NOT INTUBATE DVT prophylaxis: Heparin Discussed with: Patient's sister Chelsea Sales and RN Anticipated discharge date: Clinical course to determine Anticipated discharge place: Return to [facility] home A total of 35 minutes was spent on the care of this complex patient more than 50% of the time was spent in counseling and care coordination. Objective - Vital Signs Vital signs: Vital Signs Temp 97.6 F 10/09/22 07:08 Pulse 65 10/09/22 07:08 Resp 16 10/09/22 07:08 BP 120/53 10/09/22 07:08 Pulse Ox 90 L 10/09/22 07:08 FiO2 Intake & Output 10/08/22 10/09/22 10/09/22 18:59 06:59 18:59 Intake Total 60 0 Balance 60 0 Weight 62.142 kg Intake: Oral 60 0 Other: Voiding Method Diaper Diaper Incontinent # Voids 3 1 - Labs CBC & Chem 7: 10/10/22 09:00 10/10/22 09:00 Labs: Abnormal Lab Results - Last 24 Hours (Table) 10/08/22 10/08/22 10/08/22 Range/Units 05:22 05:22 14:25 RBC 3.89 L (4.40-5.60) X 10*6/uL Hgb 11.6 L (13.0-17.0) g/dL Hct 36.2 L (39.6-50.0) % MPV 13.0 H (9.5-12.2) fL Chloride 111 H (96-109) mmol/L Carbon Dioxide 19.6 L (20.0-27.5) mmol/L Glucose 63 L (70-110) mg/dL POC Glucose (mg/dL) 60 L (70-110) mg/dL Total Protein 5.3 L (6.2-8.2) g/dL Albumin 3.4 L (3.8-4.9) g/dL 10/08/22 10/08/22 10/09/22 Range/Units 15:26 20:03 07:27 RBC (4.40-5.60) X 10*6/uL Hgb (13.0-17.0) g/dL Hct (39.6-50.0) % MPV (9.5-12.2) fL Chloride (96-109) mmol/L Carbon Dioxide (20.0-27.5) mmol/L Glucose (70-110) mg/dL POC Glucose (mg/dL) 124 H 124 H 111 H (70-110) mg/dL Total Protein (6.2-8.2) g/dL Albumin (3.8-4.9) g/dL
[2022-10-09 17:57] LABS: Glucose,Whole Blood 94 mg/dL (70-110)
[2022-10-10] MEDS: DOCUSATE 100 MG CAP PO SCH ×3 (00:01→22:52)
[2022-10-10 00:06] LABS: Glucose,Whole Blood 102 mg/dL (70-110)
[2022-10-10] MEDS: DEXTROSE 5%-0.45% NACL 1,000 ML IV SCH (05:04)
[2022-10-10] MEDS: FAMOTIDINE 20 MG/2 ML VIAL IV SCH ×2 (05:05→18:03)
[2022-10-10 05:58] LABS: Glucose,Whole Blood 91 mg/dL (70-110)
[2022-10-10] MEDS ORDERED: MELATONIN 3 MG TABLET PO PRN (08:49)
[2022-10-10] MEDS ORDERED: LORazepam 1 MG TAB PO PRN (08:49)
[2022-10-10] MEDS ORDERED: diphenhydrAMINE 25 MG CAP PO PRN (08:49)
--- NOTE | 2022-10-10 08:54 | P.PN ---
Subjective Progress Note Date: 10/10/22 Hospital course: Patient is a very pleasant 72-year-old male with a past medical history of developmental delay currently resides in adult foster care. He presented to the emergency department with [facility] home care provider overnight secondary to reports of intractable vomiting accompanied by frequent loose stools. Patient underwent full evaluation in the emergency department. Labs completed and reviewed. CBC consistent with normocytic anemia with stable hemoglobin of 11.8. BMP was unremarkable. Liver profile normal findings with the exception of mild hy poalbuminemia with albumin of 3.3. Amylase elevated at 117. Urinalysis questionable with 20 WBCs, patient showing no other signs of infection at this time will hold off on antibiotics. KUB showing increased intestinal gas with no signs of intestinal obstruction or pneumoperitoneum. CT abdomen and pelvis revealed a large bowel ileus with reports of gas distended large bowel with fluid levels consistent with some ileus and diarrhea. Patient was admitted under our services with consultation to general surgery. Physical exam: Patient seen and fully evaluated at the bedside this morning. Patient now having multiple bowel movements and his Diet has been progressed to a pured diet with nectar thick liquids. Patient has been cleared from general surgery standpoint for discharge. Patient has had no further episodes of hypoglycemia while on D5 infusion, however blood glucose levels remain on the lower end with morning blood glucose 94 on D5.45 infusion. Discussed with RN and we will discontinue D5 infusion this morning and monitor blood glucose levels closely to ensure patient has no further episodes of hypoglycemia now that patient's diet has been advanced. If patient able to maintain blood glucose levels within normal range with oral intake and no need for additional glucose supplements, will plan for discharge back to adult [facility] care tomorrow morning. RN and updated patient's sister over telephone on plan of care Vital signs reviewed and stable. General: Nontoxic, no distress and appears stated age. Derm: Skin warm and dry, normal coloration for ethnicity. Head: Atraumatic, normocephalic and symmetric. Eyes: EOMs intact, no lid lag, and anicteric sclera Mouth: no lip lesions, mucus membranes moist Cardiovascular: regular rate and rhythm with normal S1S2, no murmur, positive posterior tibial pulses bilaterally, and cap refill < 2 seconds. Lungs: Respirations even, regular, and unlabored on room air. Lungs CTA bilaterally, no rhonchi, no rales, no wheezing, and no accessory muscle usage. Abdominal: soft, nontender to palpation, no guarding, no appreciable organomegaly Ext: Upper and lower extremities contracted Neuro: Patient with developmental delay, nonverbal at baseline. Assessment and Plan of Care: Large bowel ileus. Resolved Intractable vomiting, secondary to above. Resolved -Gen. surgery has cleared patient from surgical standpoint for discharge. -Patient received IV fluid hydration -Large bowel ileus appears to have resolved patient now having multiple bowel movements and no further episodes of vomiting. Proteus mirabilis UTI -Urinalysis was questionable with only 20 WBCs, however preliminary urine culture positive for Proteus mirabilis, patientto continue Rocephin at this time with plan for discharge on oral antibiotic. Hypoglycemia -Patient has had no further episodes of hypoglycemia while maintaining in the D5 infusion however blood glucose levels remain on the lower end. We will discontinue D5 infusion this morning and monitor blood glucose levels closely to ensure patient has no further episodes of hypoglycemia with likely plan for discharge tomorrow morning if patient continues to improve and remains stable. -Hypoglycemia believed to be secondary to poor oral intake. Normocytic anemia -Baseline hemoglobin 13. Hemoglobin currently stable at 12.7. No need for further interventions at this time. -No signs of bleeding noted. We will continue to monitor with repeat a.m. labs and watch for any signs of bleeding. Developmental delay -Provide assistance as needed -Fall precautions CODE STATUS: DO NOT RESUSCITATE/DO NOT INTUBATE DVT prophylaxis: Heparin Discussed with: RN and RN was on the phone with patient's sister and updated her on plan of care. Anticipated discharge date: Likely within the next [address]: Return to [facility] home A total of 35 minutes was spent on the care of this complex patient more than 50% of the time was spent in counseling and care coordination. I reviewed the documentation as provided by the KERWIN above, who is the original author of this note. I agree with the documented assessment and plan, with the following changes: none Objective - Vital Signs Vital signs: Vital Signs Temp 98 F 10/10/22 07:17 Pulse 68 10/10/22 07:17 Resp 18 10/10/22 07:17 BP 128/72 10/10/22 07:17 Pulse Ox 95 10/10/22 07:17 FiO2 Intake & Output 10/09/22 10/10/22 10/10/22 18:59 06:59 18:59 Other: Voiding Method Diaper Diaper # Voids 1 2 # Bowel Movements 1 1 - Labs CBC & Chem 7: 10/10/22 09:00 10/10/22 09:00 Labs: Microbiology - Last 24 Hours (Table) 10/07/22 09:52 Urine Culture - Preliminary Urine,Clean Catch Gram Neg Bacilli
[2022-10-10 09:17] LABS: HCT 37.9 % (39.0-53.0); HGB 12.7 gm/dL (13.0-17.5); MCH 30.1 pg (25.0-35.0); MCHC 33.4 g/dL (31.0-37.0); Mean Platelet Volume 9.7; Platelet Count 170 k/uL (150-450); RBC 4.21 m/uL (4.30-5.90); RDW 13.2 % (11.5-15.5); WBC 6.8 k/uL (3.8-10.6)
[2022-10-10 09:44] LABS: ALT 20 U/L (4-49); AST 23 U/L (17-59); African American GFR (CKD) >90 (>60 ml/min/1.73 sqM); Albumin 3.3 g/dL (3.5-5.0); Albumin/Globulin Ratio 1.3; Alkaline Phosphatase 74 U/L (38-126); Anion Gap 5 mmol/L; Blood Urea Nitrogen 8 mg/dL (9-20); Calcium 8.6 mg/dL (8.4-10.2); Carbon Dioxide 21 mmol/L (22-30); Chloride 112 mmol/L (98-107); Globulin 2.6 g/dL; Glucose 94 mg/dL (74-99); Magnesium 1.7 mg/dL (1.6-2.3); Non-African American GFR(CKD) >90 (>60 ml/min/1.73 sqM); Sodium 138 mmol/L (137-145); Total Bilirubin 0.6 mg/dL (0.2-1.3); Total Protein 5.9 g/dL (6.3-8.2)
[2022-10-10] MEDS: HEPARIN SODIUM,PORCINE/PF 5,000 UNIT/0.5 ML SYRINGE SQ SCH ×2 (10:09→17:24)
[2022-10-10 11:23] LABS: Glucose,Whole Blood 89 mg/dL (70-110)
--- NOTE | 2022-10-10 11:54 | P.PN ---
Subjective Progress Note Date: 10/10/22 CHIEF COMPLAINT: Vomiting HISTORY OF PRESENT ILLNESS: Patient found to have evidence of abdominal ileus l ikely secondary to UTI. Patient did have a large bowel movement yesterday with some additional small bowel movements. Patient started on antibiotics for UTI. No evidence of abdominal pain. No further nausea or vomiting. Patient's oral intake has been poor likely due to him not being in his home environment. Per nursing staff patient sister has reported the patient does not do well out of his home environment. PHYSICAL EXAM: VITAL SIGNS: Reviewed. GENERAL: Well-developed in no acute distress. HEENT: No sclera icterus. Extraocular movements grossly intact. Moist buccal mucosa. Head is atraumatic, normocephalic. ABDOMEN: Soft. Nondistended. Nontender. NEUROLOGIC: Awake. Nonverbal ASSESSMENT: 1. Ileus likely secondary to UTI 2. Vomiting likely due to ileus 3. UTI PLAN: -Patient can be discharged surgical standpoint -Discharge Antibiotics for UTI per medicine service -No surgical intervention planned Physician [employer] note has been reviewed by physician. Signing provider agrees with the documented findings, assessment, and plan of care. Objective - Vital Signs Vital signs: Vital Signs Temp 98 F 10/10/22 07:17 Pulse 68 10/10/22 07:17 Resp 18 10/10/22 07:17 BP 128/72 10/10/22 07:17 Pulse Ox 95 10/10/22 07:17 FiO2 Intake & Output 10/09/22 10/10/22 10/10/22 18:59 06:59 18:59 Other: Voiding Method Diaper Diaper # Voids 1 2 # Bowel Movements 1 1 - Labs CBC & Chem 7: 10/10/22 09:00 10/10/22 09:00 Labs: Abnormal Lab Results - Last 24 Hours (Table) 10/10/22 10/10/22 Range/Units 09:00 09:00 RBC 4.21 L (4.30-5.90) m/uL Hgb 12.7 L (13.0-17.5) gm/dL Hct 37.9 L (39.0-53.0) % Chloride 112 H (98-107) mmol/L Carbon Dioxide 21 L (22-30) mmol/L BUN 8 L (9-20) mg/dL Total Protein 5.9 L (6.3-8.2) g/dL Albumin 3.3 L (3.5-5.0) g/dL Microbiology - Last 24 Hours (Table) 10/07/22 09:52 Urine Culture - Preliminary Urine,Clean Catch Gram Neg Bacilli
[2022-10-10] MEDS: LACTULOSE 20 GM/30 ML CUP PO SCH (17:24)
[2022-10-10] MEDS: LORazepam 1 MG TAB PO SCH ×2 (17:24→22:52)
[2022-10-10 17:27] LABS: Glucose,Whole Blood 100 mg/dL (70-110)
[2022-10-10] MEDS ORDERED: ATORVASTATIN 20 MG TAB PO SCH (20:00)
[2022-10-10 23:51] LABS: Glucose,Whole Blood 84 mg/dL (70-110)
[2022-10-11 01:09] VITALS: RESP 16
[2022-10-11] MEDS: HEPARIN SODIUM,PORCINE/PF 5,000 UNIT/0.5 ML SYRINGE SQ SCH ×2 (02:14→11:38)
[2022-10-11] MEDS: FAMOTIDINE 20 MG/2 ML VIAL IV SCH (05:47)
[2022-10-11 06:02] LABS: Glucose,Whole Blood 93 mg/dL (70-110)
[2022-10-11 06:12] VITALS: TEMP 97.8
[2022-10-11] MEDS ORDERED: TAMSULOSIN 0.4 MG CAP.ER.24H PO SCH (07:00)
[2022-10-11] MEDS ORDERED: ASPIRIN 81 MG PO SCH (07:00)
[2022-10-11] MEDS ORDERED: LORATADINE 10 MG TAB PO SCH (07:00)
--- NOTE | 2022-10-11 08:39 | P.PN ---
Subjective Progress Note Date: 10/11/22 Principal diagnosis: Ileus Patient remains pleasantly confused. Tolerating some of his diet per nursing staff. He did have bowel function yesterday. Objective - Vital Signs Vital signs: Vital Signs Temp 97.8 F 10/11/22 07:17 Pulse 67 10/11/22 07:17 Resp 16 10/11/22 07:17 BP 126/77 10/11/22 07:17 Pulse Ox 97 10/11/22 07:17 FiO2 Intake & Output 10/10/22 10/11/22 10/11/22 18:59 06:59 18:59 Weight 62.142 kg Other: Voiding Method Diaper Diaper Incontinent Incontinent # Voids 1 3 # Bowel Movements 1 2 - Exam Abdomen: Soft, nontender, nondistended - Labs CBC & Chem 7: 10/10/22 09:00 10/10/22 09:00 Labs: Abnormal Lab Results - Last 24 Hours (Table) 10/10/22 10/10/22 Range/Units 09:00 09:00 RBC 4.21 L (4.30-5.90) m/uL Hgb 12.7 L (13.0-17.5) gm/dL Hct 37.9 L (39.0-53.0) % Chloride 112 H (98-107) mmol/L Carbon Dioxide 21 L (22-30) mmol/L BUN 8 L (9-20) mg/dL Total Protein 5.9 L (6.3-8.2) g/dL Albumin 3.3 L (3.5-5.0) g/dL Microbiology - Last 24 Hours (Table) 10/07/22 09:52 Urine Culture - Final Urine,Clean Catch Proteus mirabilis Assessment and Plan (1) Ileus Narrative/Plan: 72-year-old male doing better after antibiotics initiated. Suspect ileus from UTI. Continue diet as tolerated. Current Visit: Yes Status: Acute Code(s): K56.7 - ILEUS, UNSPECIFIED SNOMED Code(s): 978053911
[2022-10-11] MEDS: DOCUSATE 100 MG CAP PO SCH (09:56)
[2022-10-11] MEDS: LORazepam 1 MG TAB PO SCH (09:57)
[2022-10-11] MEDS: LACTULOSE 20 GM/30 ML CUP PO SCH (09:57)
--- NOTE | 2022-10-11 10:34 | P.DS ---
Providers Date of admission: 10/07/22 05:31 Expected date of discharge: 10/11/22 Attending physician: Cesario Blue MD Consults: 10/07/22 05:25 Consult Physician Routine Consulting Provider: Nain Joyner Consult Reason/Comments: ileus vs. bowel obstruction Do you want consulting provider notified?: Yes Primary care physician: Crow Gardner MD Hospital Course: Discharge Diagnosis: Large bowel ileus. Resolved Intractable vomiting, secondary to above. Resolved Proteus mirabilis UTI. Patient received 3 day course of Rocephin and discharged home on an additional 2 days of Keflex to complete a total treatment course of 5 days of antibiotics. Hypoglycemia secondary to poor oral intake. Resolved, patient discharged on pured diet with nectar thickened liquids. Normocytic anemia. Baseline hemoglobin 13. Hemoglobin currently stable at 12.7. No need for further interventions at this time. Developmental delay. [facility] where he will receive 24-hour supervision with supportive care and assistance as needed. [facility] script for wheelchair as it is medically needed because pt is a 2 person assist with standing and unable to ambulate unassisted. He is also being discharged with home health services for physical and occupational therapy. Hospital Course: Hospital course: Patient is a very pleasant 72-year-old male with a past medical history of developmental delay currently resides in adult foster care. He presented to the emergency department with [facility] home care provider overnight secondary to reports of intractable vomiting accompanied by frequent loose stools. Patient underwent full evaluation in the emergency department. Labs completed and reviewed. CBC consistent with normocytic anemia with stable hemoglobin of 11.8. BMP was unremarkable. Liver profile normal findings with the exception of mild hypoalbuminemia with albumin of 3.3. Amylase elevated at 117. Urinalysis questionable with 20 WBCs, patient showing no other signs of infection at this time will hold off on antibiotics. KUB showing increased intestinal gas with no signs of intestinal obstruction or pneumoperitoneum. CT abdomen and pelvis revealed a large bowel ileus with reports of gas distended large bowel with fluid levels consistent with some ileus and diarrhea. Patient was admitted under our services with consultation to general surgery. Patient was placed on bowel rest and received IV fluid hydration. Patient was found to have an isolated episode of hypoglycemia requiring placement on dextrose infusion to maintain stable blood glucose levels. Once large bowel ileus believed to be resolved and patient having return of normal bowel function, his diet was advanced to pured diet and D5 infusion was discontinued. Blood glucose levels were monitored closely and has maintained normal blood glucose levels for 24 hours with no further episodes of hypoglycemia. Urine culture positive for Proteus mirabilis.Patient received 3 day course of Rocephin and discharged home on an additional 2 days of Keflex to complete a total treatment course of 5 days of antibiotics. Patient has been cleared from surgical standpoint for discharge and is medically stable for discharge at this time. Pt [facility] to [facility] with script for wheelchair as it is medically needed because pt is a 2 person assist with standing and unable to ambulate unassisted. He is also being discharged with home health services for physical and occupational therapy. Discharge instructions and plan were discussed with patient's sister Chelsea over the phone this morning. All questions were answered. Physical exam: Vital signs reviewed and stable. General: Nontoxic, no distress and appears stated age. Derm: Skin warm and dry, normal coloration for ethnicity. Head: Atraumatic, normocephalic and symmetric. Eyes: EOMs intact, no lid lag, and anicteric sclera Mouth: no lip lesions, mucus membranes moist Cardiovascular: regular rate and rhythm with normal S1S2, no murmur, positive posterior tibial pulses bilaterally, and cap refill < 2 seconds. Lungs: Respirations even, regular, and unlabored on room air. Lungs CTA bilaterally, no rhonchi, no rales, no wheezing, and no accessory muscle usage. Abdominal: soft, nontender to palpation, no guarding, no appreciable organomegaly Ext: Upper and lower extremities contracted Neuro: Patient with developmental delay, nonverbal at baseline. A total of 35 minutes of time were spent preparing this complex discharge summary. Pt was discharged on 10/11/22 at 9:56 AM. I reviewed the documentation as provided by the KERWIN above, who is the original author of this note. I agree with the documented assessment and plan, with the following changes: none Patient Condition at Discharge: Stable Plan - Discharge Summary Discharge Rx Participant: No New Discharge Prescriptions: New Cephalexin [Keflex] 500 mg PO Q8HR 2 Days #6 cap Continue LORazepam [Ativan] 1 mg PO BID PRN PRN Reason: Anxiety Aspirin EC [Ecotrin Low Dose] 81 mg PO DAILY@0700 Atorvastatin [Lipitor] 20 mg PO HS@2000 Lactulose 10 gm PO DAILY@1600 LORazepam [Ativan] 1 mg PO TID@0700,1599,1999 Simply Thick 1 dose PO DIRECTED Melatonin 3 mg PO HS PRN #30 tablet PRN Reason: Insomnia Tamsulosin [Flomax] 0.4 mg PO DAILY@0700 Oxymetazoline 0.05% Nasl Calamus [Afrin 0.05% Nasal Calamus] 2 spray EA NOSTRIL Q12H PRN PRN Reason: Nasal Congestion diphenhydrAMINE HCL [Benadryl] 25 mg PO HS PRN PRN Reason: Allergy Symptoms Cetirizine HCl 10 mg PO DAILY@0700 Discharge Medication List Aspirin EC [Ecotrin Low Dose] 81 mg PO DAILY@0707/27/20 [History] Atorvastatin [Lipitor] 20 mg PO HS@199907/27/20 [History] LORazepam [Ativan] 1 mg PO BID PRN 07/27/20 [History] LORazepam [Ativan] 1 mg PO TID@0700,1599,199907/27/20 [History] Lactulose 10 gm PO DAILY@1600 07/27/20 [History] Simply Thick 1 dose PO DIRECTED 04/22/21 [History] Melatonin 3 mg PO HS PRN #30 tablet 04/25/21 [Rx] Cetirizine HCl 10 mg PO DAILY@0700 10/07/22 [History] Oxymetazoline 0.05% Nasl Calamus [Afrin 0.05% Nasal Calamus] 2 spray EA NOSTRIL Q12H PRN 10/07/22 [History] Tamsulosin [Flomax] 0.4 mg PO DAILY@0700 10/07/22 [History] diphenhydrAMINE HCL [Benadryl] 25 mg PO HS PRN 10/07/22 [History] Cephalexin [Keflex] 500 mg PO Q8HR 2 Days #6 cap 10/11/22 [Rx] Follow up Appointment(s)/Referral(s): [facility], [NON-STAFF] - 1-2 Days Mario Gama MD [REFERRING] - 1 Week (call office for follow up appt) Nain Joyner MD [STAFF PHYSICIAN] - 2 Weeks (call office for follow up appt) Patient Instructions/Handouts: Cephalexin (By mouth) Activity/Diet/Wound Care/Special Instructions: Activity: As tolerated. Requires 24-hour supervision. Diet: Pured diet with nectar thick liquids Special Instructions: Please ensure patient takes all of his medications as directed and remember to keep all of his recommended doctor's appointments and follow-up as needed. Pt [facility] with script for wheelchair as it is medically needed because pt is a 2 person assist with standing and unable to ambulate unassisted. He is also being discharged with home health services for physical and occupational therapy. Thank you for allowing us to participate in your care, it was truly a pleasure having you for our patient!!! Discharge Disposition: HOME WITH HOME HEALTH SERVICES
[2022-10-11 12:48] VITALS: BP 159/76; PULSE 72
== END 2022-10-11 16:46 | disposition home health service (06) | DRG 389 ==
LOC: EC 00:54 → 5NMEDONC 05:31 → 1SOBS 11:59 → 5NMEDONC 18:36
PROVIDERS: ADMIT Internal Medicine; ATTEND Internal Medicine
DX: K56.7 Ileus, unspecified (principal); N39.0 Urinary tract infection, site not specified; B96.4 Proteus (mirabilis) (morganii) as the cause of diseases classified elsewhere; D64.9 Anemia, unspecified; Z66 Do not resuscitate; E16.1 Other hypoglycemia; F79 Unspecified intellectual disabilities; Z85.828 Personal history of other malignant neoplasm of skin; E88.09 Other disorders of plasma-protein metabolism, not elsewhere classified; Z79.82 Long term (current) use of aspirin; Z79.899 Other long term (current) drug therapy; R74.8 Abnormal levels of other serum enzymes
CPT/HCPCS: 36415; 74018; 74176; 80053; 81001; 82150; 83036; 83690; 83735; 85025; 85027; 87077; 87086; 87186

== ENCOUNTER 2024-05-13 17:16 | Emergency (ER) | payer MEDICARE, OTHER ==
[2024-05-13 17:25] VITALS: TEMP 97.9
--- NOTE | 2024-05-13 18:10 | ED ---
General Adult HPI - General Chief complaint: Fall Stated complaint: fall Time Seen by Provider: 05/13/24 17:26 Source: family Mode of arrival: wheelchair Limitations: no limitations - History of Present Illness Initial comments: Patient is a 73-year-old male past medical history of severe intellectual disability, nonverbal presenting with his caregiver from his assisted for multiple falls. Patient typically ambulates with a gait belt and assistance from a caregiver. Over the last week patient has had 3 falls where "his legs give out from under him" and he needs to be assisted to the ground. Patient has not had any head trauma with these falls and he is assisted to the ground by however is holding his gait belt. He is also has difficulty standing up off of the toilet over the last few days. Patient has not had any fevers, cough, vomiting, diarrhea, signs of pain or changes in behavior. Patient currently behaving at baseline. No changes in appetite and continues to eat and drink like he normally would. - Related Data Home Medications Medication Instructions Recorded Confirmed Aspirin EC [Ecotrin Low Dose] 81 mg PO DAILY@79907/27/20 05/13/24 LORazepam [Ativan] 1 mg PO TID@07/27/20 05/13/24 LORazepam [Ativan] 2 mg PO DAILY PRN 07/27/20 05/13/24 Cetirizine HCl 10 mg PO DAILY@79910/07/22 05/13/24 Tamsulosin [Flomax] 0.4 mg PO DAILY@79910/07/22 05/13/24 Atorvastatin [Lipitor] 10 mg PO Q2D 05/13/24 05/13/24 Lactose-Reduced Food [Boost] 1 can PO DAILY 05/13/24 05/13/24 Loperamide HCl [Imodium A-D] 2 - 4 mg PO QID PRN 05/13/24 05/13/24 Losartan [Cozaar] 25 mg PO DAILY@79905/13/24 05/13/24 Mupirocin 2% Oint [Bactroban 2% 1 applic TOPICAL BID PRN 05/13/24 05/13/24 Oint] Sennosides/Docusate Sodium [Senna 2 tab PO DAILY PRN 05/13/24 05/13/24 Plus 8.6-50 mg Softgel] Thick-It 1 dose PO DIRECTED PRN 05/13/24 05/13/24 bisacodyL 10 mg RECTAL DAILY PRN 05/13/24 05/13/24 Allergies Allergy/AdvReac Type Severity Reaction Status Date / Time No Known Allergies Allergy Verified 05/13/24 20:46 Review of Systems ROS Statement: Those systems with pertinent positive or pertinent negative responses have been documented in the HPI. ROS Other: All systems not noted in ROS Statement are negative. Limitations: ROS unobtainable due to patients medical condition Past Medical History Past Medical History: Cancer, Liver Disease Additional Past Medical History / Comment(s): skin CA, mentally disabled, PKU, viral hepatitis History of Any Multi-Drug Resistant Organisms: None Reported Past Surgical History: No Surgical Hx Reported Additional Past Surgical History / Comment(s): skin cancer removed from face Past Anesthesia/Blood Transfusion Reactions: No Reported Reaction Past Psychological History: No Psychological Hx Reported Smoking Status: Never smoker Past Alcohol Use History: None Reported Past Drug Use History: None Reported - Past Family History Father Family Medical History: Cancer, Hypertension Additional Family Medical History / Comment(s): Father of lung cancer. He was a smoker. Mother Family Medical History: Dementia, Hypertension Additional Family Medical History / Comment(s): Mother of alzheimer's. General Exam - General Exam Comments Initial Comments: PE: CONSTITUTIONAL: No apparent distress, well appearing SKIN: Warm, dry, no jaundice, hives or petechiae EYES: Pupils are equally round, extraocular movements intact without nystagmus, clear conjunctiva, non-icteric sclera HENT: Normocephalic, atraumatic, moist mucus membranes, oropharynx clear without exudates NECK: , Full range of motion, normal appearance PULMONARY: Clear to auscultation without wheezes, rhonchi, or rales, normal excursion, no accessory muscle use and no stridor CARDIOVASCULAR: Regular rate, rhythm, normal S1 and S2. No appreciated murmurs, rubs or gallops. Strong radial pulses with intact distal perfusion. No lower extremity edema GASTROINTESTINAL: Soft, signs of tenderness to palpation of the abdomen, patient does not guard on palpation of the abdomen, non-distended, no palpable masses, no rebound or guarding. No hepatosplenomegaly MUSCULOSKELETAL: Extremities have no gross deformity, no edema, redness, or swelling. No calf swelling, no deformity, steps offs or signs of pain with palpation of the midline spine NEUROLOGIC: Difficult to assess orientation as patient is nonverbal, he is behaving at baseline per caregiver, he is awake and alert, follows commands, Moves all extremities x 4 without deficit PSYCHIATRIC: Patient calm and cooperative Limitations: no limitations Course Vital Signs 05/13/24 05/13/24 17:17 21:24 Temperature 97.9 F Pulse Rate 82 85 Respiratory 18 20 Rate Blood Pressure 134/70 128/69 O2 Sat by Pulse 93 L 95 Oximetry EKG Findings - EKG Comments: EKG Findings:: Sinus rhythm, rate 69 bpm, TN interval 133 ms, QRS duration 96 ms, QT/QTc 380/400 ms, normal axis, significant artifact due to patient's tremoring no obvious ST elevation or depression or arrhythmia Medical Decision Making - Medical Decision Making Was pt. sent in by a medical professional or institution (, PA, SMASH FIXER, urgent care, hospital, or jail...) When possible be specific @ -Patient sent in from his adult care facility Did you speak to anyone other than the patient for history (EMS, parent, family, police, friend...)? What history was obtained from this source @ -Spoke with patient's caregiver Did you review nursing and triage notes (agree or disagree)? Why? @ -I reviewed and agree with nursing and triage notes, with exception of "weakness in knees" patient appears to have generalized weakness and is having difficulty standing up and maintaining his gait Were old charts reviewed (outside hosp., previous admission, EMS record, old EKG, old radiological studies, urgent care reports/EKG's, jail records)? Report findings @ -CT head/ C-spine performed on 11/16/2023 showed age-related atrophic and chronic small vessel ischemic changes without acute intracranial process on CT brain, CT neck showed no evidence for acute fracture or subluxation of the cervical spine Differential Diagnosis (chest pain, altered mental status, abdominal pain women, abdominal pain men, vaginal bleeding, weakness, fever, dyspnea, syncope, headache, dizziness, GI bleed, back pain, seizure, CVA, palpatations, mental health, musculoskeletal)? @ -Differential diagnosis remains broad however top considerations include Hypoglycemia, hyponatremia, anemia, infection, ACS, deconditioning, adverse medicine reaction, this is not meant to be an all-inclusive list. EKG interpreted by me (3pts min.). @ -As above X-rays interpreted by me (1pt min.). @ -No cardiomegaly, consolidations or other acute process CT interpreted by me (1pt min.). @ -None done U/S interpreted by me (1pt. min.). @ -None done What testing was considered but not performed or refused? (CT, X-rays, U/S, labs)? Why? @ Considered CT abdomen due to loops noted on XR however patient's abdomen is soft, nondistended, he is afebrile, is able to tolerate PO without difficulty and continuous to pass stool; UA ordered intiially however patient was in a hallway bed and there were no rooms available to bring patient to for a straight cath sample, patient is in a brief and caregiver requested that UA be able to be performed when patient's primary care provider sees him on Thursday. What meds were considered but not given or refused? Why? @ -None Did you discuss the management of the patient with other professionals (professionals i.e. , PA, SMASH FIXER, lab, RT, psych nurse, social services aide, serology teacher, teacher, chief development officer, case specialist)? Give summary @ -No Was smoking cessation discussed for >3mins.? @ -No Was critical care preformed (if so, how long)? @ -No Were there social determinants of health that impacted care today? How? (Homeles sness, low income, unemployed, alcoholism, drug addiction, transportation, low edu. Level, literacy, decrease access to med. care, fci, rehab)? @ -Intellectual disability Was there de-escalation of care discussed even if they declined (Discuss DNR or withdrawal of care, Hospice)? @ -No What co-morbidities impacted this encounter? (DM, HTN, Smoking, COPD, CAD, Cancer, CVA, ARF, Chemo, Hep., AIDS, mental health diagnosis, sleep apnea, morbid obesity)? @ -Intellectual disability Was patient admitted / discharged? Hospital course, mention meds given and route, prescriptions, significant lab abnormalities, going to OR and other pertinent info. @ -Patient is a pleasant 73-year-old male past medical history of severe intellectual disability presenting with his caregiver for 1 week of worsening w eakness. No trauma as a result of falls, patient has been slowly let down to ground. Patient has not shown signs of pain. No fevers. Is content currently behaving at baseline. Workup will remain broad given patient is nonverbal. Will begin with chest x-ray, comprehensive labs, UA. Labs and imaging reviewed. Grossly within normal limits. Abnormal values not concerning for acute pathology related to presenting complaint. Patient is currently in a hallway bed and is wearing a brief, there is no room available to bring him into for a straight cath urine sample. Patient's caregiver wonders if would be possible for patient to have urine sample obtained during his doctor visit on Thursday. Patient has missed his evening medications and normally goes to bed at 730. Patient caregiver does not feel patient will be able to provide a urine sample tonight. We discussed reason for UA being to r/o infection as cause of weakness, however given patient's reassuring labs, afebrile, I feel it is reasonable to have patient follow up with his PCP next week for UA. I discussed with patient's caregiver signs and symptoms warranting return to the ED to monitor for warranting return to the emergency department patient patient's caregiver provided with a "Hat" for patient to urinate in in pre paration for PCP visit. In my medical judgment there is currently no evidence of an immediate life- threatening or surgical condition. Discharge is therefore indicated at this time. Discharge treatment instructions, follow up instructions, and appropriate emergency department return precautions were discussed with the patient and/or medical decision maker. Patient and/or medical decision maker expressed understanding of and agreed with the treatment plan, follow up instructions, and emergency department return precaution. All patient's and/or medical decision maker's questions were answered. Undiagnosed new problem with uncertain prognosis? @ -No Drug Therapy requiring intensive monitoring for toxicity (Heparin, Nitro, Insulin, Cardizem)? @ -No Were any procedures done? @ -No Diagnosis/symptom? @ -Generalized weakness Acute, or Chronic, or Acute on Chronic? @ -Acute Uncomplicated (without systemic symptoms) or Complicated (systemic symptoms)? @ -Uncomplicated Side effects of treatment? @ -No Exacerbation, Progression, or Severe Exacerbation? @ -No - Lab Data Result diagrams: 05/13/24 18:15 05/13/24 18:15 Lab Results 05/13/24 05/13/24 05/13/24 Range/Units 18:15 18:15 18:15 WBC 5.1 (3.8-10.6) k/uL RBC 4.36 (4.30-5.90) m/uL Hgb 13.6 (13.0-17.5) gm/dL Hct 40.5 (39.0-53.0) % MCV 92.8 (80.0-100.0) fL MCH 31.2 (25.0-35.0) pg MCHC 33.6 (31.0-37.0) g/dL RDW 13.3 (11.5-15.5) % Plt Count 152 (150-450) k/uL MPV 10.3 Neutrophils % 56 % Lymphocytes % 32 % Monocytes % 7 % Eosinophils % 2 % Basophils % 0 % Neutrophils # 2.9 (1.3-7.7) k/uL Lymphocytes # 1.6 (1.0-4.8) k/uL Monocytes # 0.3 (0-1.0) k/uL Eosinophils # 0.1 (0-0.7) k/uL Basophils # 0.0 (0-0.2) k/uL PT 11.7 (10.0-12.5) sec INR 1.1 (<1.2) APTT 25.8 (22.0-30.0) sec Sodium 137 (137-145) mmol/L Potassium 4.8 (3.5-5.1) mmol/L Chloride 111 H (98-107) mmol/L Carbon Dioxide 18 L (22-30) mmol/L Anion Gap 8 mmol/L BUN 20 (9-20) mg/dL Creatinine 0.67 (0.66-1.25) mg/dL Est GFR (CKD-EPI)AfAm >90 (>60 ml/min/1.73 sqM) Est GFR (CKD-EPI)NonAf >90 (>60 ml/min/1.73 sqM) Glucose 80 (74-99) mg/dL Plasma Lactic Acid Kevon (0.7-2.0) mmol/L Calcium 9.7 (8.4-10.2) mg/dL Ionized Calcium Belkis 5.1 (4.5-5.3) mg/dL Phosphorus 3.2 (2.5-4.5) mg/dL Magnesium 2.0 (1.6-2.3) mg/dL Total Bilirubin 0.7 (0.2-1.3) mg/dL AST 30 (17-59) U/L ALT 16 (4-49) U/L Alkaline Phosphatase 93 (38-126) U/L Troponin I (0.000-0.034) ng/mL C-Reactive Protein (<1.0) mg/dL NT-Pro-B Natriuret Pep 59 pg/mL Total Protein 7.0 (6.3-8.2) g/dL Albumin 4.1 (3.5-5.0) g/dL TSH 2.190 (0.465-4.680) mIU/L Influenza Type A (PCR) (Not Detectd) Influenza Type B (PCR) (Not Detectd) RSV (PCR) (Not Detectd) SARS-CoV-2 (PCR) (Not Detectd) 05/13/24 05/13/24 05/13/24 Range/Units 18:15 18:15 20:08 WBC (3.8-10.6) k/uL RBC (4.30-5.90) m/uL Hgb (13.0-17.5) gm/dL Hct (39.0-53.0) % MCV (80.0-100.0) fL MCH (25.0-35.0) pg MCHC (31.0-37.0) g/dL RDW (11.5-15.5) % Plt Count (150-450) k/uL MPV Neutrophils % % Lymphocytes % % Monocytes % % Eosinophils % % Basophils % % Neutrophils # (1.3-7.7) k/uL Lymphocytes # (1.0-4.8) k/uL Monocytes # (0-1.0) k/uL Eosinophils # (0-0.7) k/uL Basophils # (0-0.2) k/uL PT (10.0-12.5) sec INR (<1.2) APTT (22.0-30.0) sec Sodium (137-145) mmol/L Potassium (3.5-5.1) mmol/L Chloride (98-107) mmol/L Carbon Dioxide (22-30) mmol/L Anion Gap mmol/L BUN (9-20) mg/dL Creatinine (0.66-1.25) mg/dL Est GFR (CKD-EPI)AfAm (>60 ml/min/1.73 sqM) Est GFR (CKD-EPI)NonAf (>60 ml/min/1.73 sqM) Glucose (74-99) mg/dL Plasma Lactic Acid Kevon 1.0 (0.7-2.0) mmol/L Calcium (8.4-10.2) mg/dL Ionized Calcium Belkis (4.5-5.3) mg/dL Phosphorus (2.5-4.5) mg/dL Magnesium (1.6-2.3) mg/dL Total Bilirubin (0.2-1.3) mg/dL AST (17-59) U/L ALT (4-49) U/L Alkaline Phosphatase (38-126) U/L Troponin I <0.012 (0.000-0.034) ng/mL C-Reactive Protein (<1.0) mg/dL NT-Pro-B Natriuret Pep pg/mL Total Protein (6.3-8.2) g/dL Albumin (3.5-5.0) g/dL TSH (0.465-4.680) mIU/L Influenza Type A (PCR) Not Detected (Not Detectd) Influenza Type B (PCR) Not Detected (Not Detectd) RSV (PCR) Not Detected (Not Detectd) SARS-CoV-2 (PCR) Not Detected (Not Detectd) 05/13/24 Range/Units Unknown WBC (3.8-10.6) k/uL RBC (4.30-5.90) m/uL Hgb (13.0-17.5) gm/dL Hct (39.0-53.0) % MCV (80.0-100.0) fL MCH (25.0-35.0) pg MCHC (31.0-37.0) g/dL RDW (11.5-15.5) % Plt Count (150-450) k/uL MPV Neutrophils % % Lymphocytes % % Monocytes % % Eosinophils % % Basophils % % Neutrophils # (1.3-7.7) k/uL Lymphocytes # (1.0-4.8) k/uL Monocytes # (0-1.0) k/uL Eosinophils # (0-0.7) k/uL Basophils # (0-0.2) k/uL PT (10.0-12.5) sec INR (<1.2) APTT (22.0-30.0) sec Sodium (137-145) mmol/L Potassium (3.5-5.1) mmol/L Chloride (98-107) mmol/L Carbon Dioxide (22-30) mmol/L Anion Gap mmol/L BUN (9-20) mg/dL Creatinine (0.66-1.25) mg/dL Est GFR (CKD-EPI)AfAm (>60 ml/min/1.73 sqM) Est GFR (CKD-EPI)NonAf (>60 ml/min/1.73 sqM) Glucose (74-99) mg/dL Plasma Lactic Acid Kevon (0.7-2.0) mmol/L Calcium (8.4-10.2) mg/dL Ionized Calcium Belkis (4.5-5.3) mg/dL Phosphorus (2.5-4.5) mg/dL Magnesium (1.6-2.3) mg/dL Total Bilirubin (0.2-1.3) mg/dL AST (17-59) U/L ALT (4-49) U/L Alkaline Phosphatase (38-126) U/L Troponin I (0.000-0.034) ng/mL C-Reactive Protein <0.5 (<1.0) mg/dL NT-Pro-B Natriuret Pep pg/mL Total Protein (6.3-8.2) g/dL Albumin (3.5-5.0) g/dL TSH (0.465-4.680) mIU/L Influenza Type A (PCR) (Not Detectd) Influenza Type B (PCR) (Not Detectd) RSV (PCR) (Not Detectd) SARS-CoV-2 (PCR) (Not Detectd) Disposition Clinical Impression: Weakness, Multiple falls Disposition: HOME SELF-CARE Condition: Good Additional Instructions: Every disease is a spectrum and a small chance still exists that a serious condition could develop, for this reason, please monitor Lauri closely for new, changing or worsening symptoms, symptoms persistent beyond 1 week, vomiting, diarrhea, changes in behavior, confusion, fever, inability to tolerate/keep down fluids or his medications, inability to follow up with outpatient providers as instructed and should he experience these symptoms or should you have any further concerns for his wellbeing please return to the ED or call 911 immediately. Please discuss obtaining a urine sample with Lauri's PCP during his visit on Thursday. If his urine begins to have a strong smell or change in color or blood, please return to the ED immediately to have patient's urine testing. PLEASE call Lauri's primary care physician as soon as possible to arrange / discuss plan for followup appointment. Appointment in the next 1-3 days is strongly encouraged if possible. PLEASE let us know here before you leave if there is anything further we can do to be of any assistance. Take care and feel Better! Is patient prescribed a controlled substance at d/c from ED?: No Referrals: Crow Gardner MD [Primary Care Provider] - 1-2 days Time of Disposition: 21:08
--- NOTE | 2024-05-13 18:50 | XR ---
EXAMINATION TYPE: XR chest 2V DATE OF EXAM: 05/13/2024 6:39 PM CLINICAL INDICATION: Male, 73 years old with history of Weakness; COMPARISON: 04/22/2021 TECHNIQUE: XR chest 2V Frontal view of the chest. FINDINGS: Lungs/Pleura: There is no evidence of pleural effusion, focal consolidation, or pneumothorax. Pulmonary vascularity: Unremarkable. Heart/mediastinum: Cardiomediastinal silhouette is unremarkable. Musculoskeletal: No acute osseous pathology. Other findings: Large bowels situated between the liver and diaphragm on the right. IMPRESSION: No acute cardiopulmonary disease/process.
[2024-05-13 19:31] LABS: Basophils % (A) 0 %; Eosinophils # (A) 0.1 k/uL (0-0.7); Eosinophils % (A) 2 %; HCT 40.5 % (39.0-53.0); HGB 13.6 gm/dL (13.0-17.5); Lymphocytes # (A) 1.6 k/uL (1.0-4.8); Lymphocytes % (A) 32 %; MCH 31.2 pg (25.0-35.0); MCHC 33.6 g/dL (31.0-37.0); MCV 92.8 fL (80.0-100.0); Mean Platelet Volume 10.3; Monocytes # (A) 0.3 k/uL (0-1.0); Monocytes % (A) 7 %; Neutrophils # (A) 2.9 k/uL (1.3-7.7); Neutrophils % (A) 56 %; Platelet Count 152 k/uL (150-450); RBC 4.36 m/uL (4.30-5.90); RDW 13.3 % (11.5-15.5); WBC 5.1 k/uL (3.8-10.6)
[2024-05-13 19:55] LABS: Ionized Calcium 5.1 mg/dL (4.5-5.3)
[2024-05-13 19:56] LABS: INR 1.1 (<1.2); Partial Thromboplastin Time 25.8 sec (22.0-30.0); Prothrombin Time 11.7 sec (10.0-12.5)
[2024-05-13 20:07] LABS: ALT 16 U/L (4-49); AST 30 U/L (17-59); African American GFR (CKD) >90 (>60 ml/min/1.73 sqM); Albumin 4.1 g/dL (3.5-5.0); Alkaline Phosphatase 93 U/L (38-126); Anion Gap 8 mmol/L; Blood Urea Nitrogen 20 mg/dL (9-20); Calcium 9.7 mg/dL (8.4-10.2); Carbon Dioxide 18 mmol/L (22-30); Chloride 111 mmol/L (98-107); Glucose 80 mg/dL (74-99); Non-African American GFR(CKD) >90 (>60 ml/min/1.73 sqM); Phosphorus 3.2 mg/dL (2.5-4.5); Potassium 4.8 mmol/L (3.5-5.1); Sodium 137 mmol/L (137-145); Total Bilirubin 0.7 mg/dL (0.2-1.3)
[2024-05-13 20:16] LABS: NT-Pro-B-Type Natriuretic Pept 59 pg/mL
[2024-05-13 21:26] VITALS: BP 128/69; PULSE 85; RESP 20
== END 2024-05-13 21:26 | disposition home or self-care (01) ==
LOC: EC 17:16
CPT/HCPCS: 36415; 71046; 80053; 82330; 83605; 83735; 83880; 84100; 84443; 84484; 85025; 85610; 85730; 86140; 87636; 93005; 99284